=== PATIENT | female | born 2000 | race Hispanic/Latino ===

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

== ENCOUNTER 2019-12-01 18:30 | Inpatient (IN) | payer OTHER, MEDICAID, SELFPAY ==
[2019-12-01] VITALS (17 sets, daily range): BP systolic 113–158; BP diastolic 53–87; PULSE 109–143; RESP 9–40; TEMP 37.3–37.9; O2SAT 94–99; BMI 52.7
--- NOTE | 2019-12-01 18:32 | ED_ITS ---
HPI - Fever General Chief Complaint: Fever Stated Complaint: fever, medicine not reducing she says Time Seen by Provider: 12/01/19 18:32 Source: patient Mode of arrival: Ambulatory Limitations: no limitations History of Present Illness HPI Narrative: 19F nonsmoker with no significant medical history presents with 24 hours of worsening epigastric pain, N/V, and fever as high as 103. Her pain is worse with eating and moving and seems to improve with rest. She has had some loose stools, but no blood. She denies runny nose, sore throat, cough, chest pain or shortness of breath. She denies any dysuria, frequency or urgency. She denies any vaginal bleeding or discharge. She states there is no chance she is . She denies any known exposure to persons known to have COVID-19. She denies bad food, recent travel, or recent antibiotics. She's never had this Related Data Home Medications Medication Instructions Recorded Confirmed No Known Home Medications 12/02/19 12/02/19 Allergies Allergy/AdvReac Type Severity Reaction Status Date / Time No Known Drug Allergies Allergy Verified 12/01/19 18:44 Review of Systems Constitutional Constitutional: Reports body ache(s), Reports chills, Denies fatigue, Reports fever(s), Denies frequent falls, Denies lethargy and Denies weakness Eyes Eyes: Denies change in vision, Denies eye discharge, Denies irritation and Denies loss of vision ENT Ears, Nose, Mouth, and Throat: Denies change in voice, Denies dizziness, Denies neck pain, Denies sore throat and Denies throat swelling Cardiovascular Cardiovascular: Denies chest pain, Denies irregular heart rhythm, Denies light headedness, Denies palpitations, Denies dyspnea, Denies dyspnea on exertion and Denies orthopnea Respiratory Respiratory: Denies cough, Denies dyspnea, Denies dyspnea on exertion and Denies wheezing Gastrointestinal Gastrointestinal: Reports abdominal pain, Denies change in bowel habits, Reports diarrhea, Reports nausea and Reports vomiting Musculoskeletal Musculoskeletal: Denies neck pain and Denies numbness Integumentary/Breasts Skin/Breast: Denies pruritus, Denies erythema, Denies rash and Denies wounds Neurologic Neurologic: Denies behavioral changes, Denies confusion, Denies dizziness, Denies frequent falls, Denies loss of vision, Denies numbness and Denies weakness Psychiatric Psychiatric: Denies anxiety, Denies behavioral changes, Denies confusion, Denies depression, Denies homicidal ideation and Denies suicidal ideation Endocrine Endocrine: Denies fatigue, Denies flushing and Denies palpitations Hematologic/Lymphatic Hematologic/Lymphatic: Denies easy bruising Allergic/Immunologic Allergic/Immunologic: Denies urticaria, Denies throat swelling and Denies wheezing Patient History Social History household members: family Smoking Status: Never smoker Smoking Status: Never smoker alcohol intake frequency: 0-2 drinks per day Substance Use Type: does not use Exam Narrative Exam Narrative: GENERAL: [19] year old patient appears stated age. Well- nourished, well-developed patient, in mild distress. HEAD: Atraumatic. Normocephalic. EYES: Pupils equal round and reactive. Extraocular motions intact. No scleral icterus. No injection or drainage. ENT: Nose without bleeding, purulent drainage. Throat without erythema, tonsillar hypertrophy or exudate. Airway patent. NECK: Trachea midline. Non tender CARDIOVASCULAR: tachycardic and irregular rhythm without murmurs, gallops, or rubs. RESPIRATORY: Clear to auscultation. Breath sounds equal bilaterally. No wheezes, rales, or rhonchi. GASTROINTESTINAL: Abdomen soft, epigastric and RUQ pain, nondistended. EXTREMITIES: No edema or joint tenderness. BACK: Nontender without deformity or crepitance. No flank tenderness. NEURO: AOx3. SKIN: No rash or erythema of visible areas Initial Vital Signs Initial Vital Signs: Vital Signs Pulse Rate 137 H 12/01/19 18:40 Pulse Oximetry 95 12/01/19 18:40 Course Orders Ordered: ED Orders 12/01/19 18:40 US abdomen limited Stat COVID19 -ED/INPAT/OR/L&D Stat 12/01/19 19:50 Complete Blood Count AUTO DIFF Stat Comprehensive Metabolic Panel Stat Lactate (Lactic Acid) Stat Lipase Stat Procalcitonin Stat 12/01/19 20:33 Blood Culture Stat 12/01/19 21:41 CT abdomen pelvis w con Stat 12/01/19 21:55 Urine Culture Stat Urine Microscopic Stat Acetaminophen (Tylenol) 650 mg PO Q6HR PRN PRN Reason: Fever/Mild Pain (1-3) Enoxaparin Sodium (Lovenox) 40 mg SUBCUT DAILY NICKIE Sodium Chloride (Normal Saline 0.9%) 1,000 mls @ 150 mls/hr IV CONT NICKIE Potassium Chloride 30 meq/ (Sodium Chloride) 265 mls @ 88.333 mls/hr IV Q3H NICKIE Stop: 12/02/19 07:49 Metronidazole (Flagyl) 500 mg in 100 mls @ 100 mls/hr IV Q6H NICKIE Ceftriaxone Sodium/Dextrose (Rocephin) 1 gm in 50 mls @ 100 mls/hr IV Q24H NICKIE Naloxone HCl (Narcan) 0.2 mg IV Q2MIN PRN PRN Reason: Opiate Reversal Ondansetron HCl (Zofran) 4 mg IV Q6HR PRN PRN Reason: Nausea And Vomiting Discontinued Medications Lactated Ringer's (Lactated Ringers) 1,365 mls @ 455 mls/hr 30 ml/kg infuse over 3 hr (1365 ml) IV NOW ONE Stop: 12/01/19 21:39 Last Infusion: 12/01/19 21:22 Dose: 0 mls/hr Documented by: Admin: 12/01/19 19:27 Dose: 455 mls/hr Documented by: JOSE Ceftriaxone Sodium/Dextrose (Rocephin) 2 gm in 50 mls @ 100 mls/hr IV NOW ONE Stop: 12/01/19 21:34 Last Infusion: 12/01/19 21:47 Dose: 0 mls/hr Documented by: Admin: 12/01/19 21:13 Dose: 100 mls/hr Documented by: YURY Metronidazole (Flagyl) 500 mg in 100 mls @ 100 mls/hr IV NOW ONE Stop: 12/02/19 00:12 Last Infusion: 12/02/19 01:10 Dose: 0 mls/hr Documented by: Admin: 12/01/19 23:39 Dose: 100 mls/hr Documented by: YURY Ketorolac Tromethamine (Toradol) 15 mg IV NOW ONE Stop: 12/01/19 20:57 Last Admin: 12/01/19 21:01 Dose: 15 mg Documented by: YURY Reevaluation(s) Reevaluation #1: call to general surgery after completion of US. Given lack of obvious findings to suggest choley recommendation (per Symone) is to obtain CT Symone has seen patient at bedside and reviewed case and does not feel GB is problem. Recommends fluids, ABX, admission to medicine. Vital Signs Vital signs: Vital Signs - 8 hr 12/01/19 18:40 12/01/19 18:44 12/01/19 19:00 Temperature 99.1 F Pulse Rate 137 H 136 H 124 H Respiratory Rate 22 Blood Pressure 137/71 Pulse Oximetry 95 95 94 12/01/19 19:30 12/01/19 20:00 12/01/19 20:30 Temperature 100.2 F H Pulse Rate 109 H 111 H 113 H Respiratory Rate 20 32 H 40 H Blood Pressure Pulse Oximetry 94 99 96 12/01/19 21:00 12/01/19 21:01 12/01/19 21:05 Temperature 100.2 F H Pulse Rate 135 H 139 H Respiratory Rate 28 H 32 H Blood Pressure 136/85 Pulse Oximetry 95 99 12/01/19 21:30 12/01/19 22:11 12/01/19 22:30 Temperature Pulse Rate 143 H 139 H 136 H Respiratory Rate 9 L Blood Pressure 137/87 Pulse Oximetry 99 99 99 12/01/19 22:38 12/01/19 23:00 12/01/19 23:01 Temperature Pulse Rate 134 H 137 H 137 H Respiratory Rate 25 H 13 16 Blood Pressure 158/70 H 126/59 L Pulse Oximetry 98 98 97 12/01/19 23:30 12/01/19 23:31 Temperature Pulse Rate 133 H 134 H Respiratory Rate 30 H 25 H Blood Pressure 113/53 L Pulse Oximetry 99 99 MDM - Fever Lab Data Result diagrams: 12/01/19 19:50 12/01/19 19:50 Labs: Lab Results 12/01/19 12/01/19 12/01/19 Range/Units 18:40 19:50 19:50 WBC 15.6 H (4.5-11.0) X10^3/uL RBC 4.63 (4.0-5.2) X10^6/uL Hgb 13.9 (12.0-16.0) g/dL Hct 40.4 (36-46) % MCV 87.3 (80-100) fL MCH 29.9 (26-34) PG MCHC 34.3 (30-36) % RDW 12.8 (11.6-14.8) % Plt Count 214 (150-400) X10^3/uL Neut % (Auto) 91.1 H (50-75) % Lymph % (Auto) 4.9 L (25-40) % [place] % (Auto) 3.2 (3-14) % Eos % (Auto) 0.5 L (2-4) % Baso % (Auto) 0.3 (0-2) % Neut # (Auto) 31578 H (6999-3636) /uL Lymph # (Auto) 800 L (4403-3306) /uL [place] # (Auto) 500 (0-900) /uL Eos # (Auto) 100 (0-450) /uL Baso # (Auto) 0 (0-100) /uL Sodium (137-145) mmol/L Potassium (3.4-5.1) mmol/L Chloride (98-107) mmol/L Carbon Dioxide (22-32) mmol/L BUN (7-17) mg/dL Creatinine (0.52-1.04) mg/dL Estimated GFR (>60) mL/min BUN/Creatinine Ratio (6-22) Glucose (70-100) mg/dL Lactate (0.7-2.1) mmol/L Calcium (8.4-10.2) mg/dL Total Bilirubin (0.2-1.3) mg/dL AST (14-36) IU/L ALT (<35) IU/L Alkaline Phosphatase (38-126) U/L Total Protein (6.3-8.2) g/dL Albumin (3.5-5.0) g/dL Globulin (1.7-4.1) g/dL Albumin/Globulin Ratio (1.0-2.8) Lipase (23-300) U/L Procalcitonin 0.21 (<0.5) ng/mL Urine RBC (0-5/HPF) Urine WBC (0-5/HPF) Ur Squamous Epith Cells (0-5/HPF) Urine Bacteria (None) Hyaline Casts (None) WBC Casts (None) Urine Mucus (Negative) Ur Culture Indicated? COVID-19 PCR Negative (Negative) 12/01/19 12/01/19 12/01/19 Range/Units 19:50 19:50 19:50 WBC (4.5-11.0) X10^3/uL RBC (4.0-5.2) X10^6/uL Hgb (12.0-16.0) g/dL Hct (36-46) % MCV (80-100) fL MCH (26-34) PG MCHC (30-36) % RDW (11.6-14.8) % Plt Count (150-400) X10^3/uL Neut % (Auto) (50-75) % Lymph % (Auto) (25-40) % [place] % (Auto) (3-14) % Eos % (Auto) (2-4) % Baso % (Auto) (0-2) % Neut # (Auto) (8378-9066) /uL Lymph # (Auto) (8528-0489) /uL [place] # (Auto) (0-900) /uL Eos # (Auto) (0-450) /uL Baso # (Auto) (0-100) /uL Sodium 137 (137-145) mmol/L Potassium 3.2 L (3.4-5.1) mmol/L Chloride 106 (98-107) mmol/L Carbon Dioxide 23 (22-32) mmol/L BUN 8 (7-17) mg/dL Creatinine 1.01 (0.52-1.04) mg/dL Estimated GFR > 60.0 (>60) mL/min BUN/Creatinine Ratio 7.9 (6-22) Glucose 114 H (70-100) mg/dL Lactate 1.3 (0.7-2.1) mmol/L Calcium 8.7 (8.4-10.2) mg/dL Total Bilirubin 0.7 (0.2-1.3) mg/dL AST 23 (14-36) IU/L ALT 21 (<35) IU/L Alkaline Phosphatase 58 (38-126) U/L Total Protein 7.6 (6.3-8.2) g/dL Albumin 4.2 (3.5-5.0) g/dL Globulin 3.4 (1.7-4.1) g/dL Albumin/Globulin Ratio 1.2 (1.0-2.8) Lipase 44 (23-300) U/L Procalcitonin (<0.5) ng/mL Urine RBC (0-5/HPF) Urine WBC (0-5/HPF) Ur Squamous Epith Cells (0-5/HPF) Urine Bacteria (None) Hyaline Casts (None) WBC Casts (None) Urine Mucus (Negative) Ur Culture Indicated? COVID-19 PCR (Negative) 12/01/19 Range/Units 21:55 WBC (4.5-11.0) X10^3/uL RBC (4.0-5.2) X10^6/uL Hgb (12.0-16.0) g/dL Hct (36-46) % MCV (80-100) fL MCH (26-34) PG MCHC (30-36) % RDW (11.6-14.8) % Plt Count (150-400) X10^3/uL Neut % (Auto) (50-75) % Lymph % (Auto) (25-40) % [place] % (Auto) (3-14) % Eos % (Auto) (2-4) % Baso % (Auto) (0-2) % Neut # (Auto) (4264-6463) /uL Lymph # (Auto) (3286-4064) /uL [place] # (Auto) (0-900) /uL Eos # (Auto) (0-450) /uL Baso # (Auto) (0-100) /uL Sodium (137-145) mmol/L Potassium (3.4-5.1) mmol/L Chloride (98-107) mmol/L Carbon Dioxide (22-32) mmol/L BUN (7-17) mg/dL Creatinine (0.52-1.04) mg/dL Estimated GFR (>60) mL/min BUN/Creatinine Ratio (6-22) Glucose (70-100) mg/dL Lactate (0.7-2.1) mmol/L Calcium (8.4-10.2) mg/dL Total Bilirubin (0.2-1.3) mg/dL AST (14-36) IU/L ALT (<35) IU/L Alkaline Phosphatase (38-126) U/L Total Protein (6.3-8.2) g/dL Albumin (3.5-5.0) g/dL Globulin (1.7-4.1) g/dL Albumin/Globulin Ratio (1.0-2.8) Lipase (23-300) U/L Procalcitonin (<0.5) ng/mL Urine RBC None seen (0-5/HPF) Urine WBC 10-30/hpf H (0-5/HPF) Ur Squamous Epith Cells 1-5 /hpf (0-5/HPF) Urine Bacteria Moderate (10-30) H (None) Hyaline Casts 0-1/lpf (None) WBC Casts 0-1/lpf (None) Urine Mucus 1+ H (Negative) Ur Culture Indicated? Specimen cultured COVID-19 PCR (Negative) Point of Care Testing Test Results Negative Urine Dip Bedside Urine Glucose Negative Bedside Urine Bilirubin - Negative Bedside Urine Ketone +/- 5 Urine Specific [place] 1.015 Bedside Urine Occult Blood +/- Bedside Urine pH 6.0 Bedside Urine Protein + 30 Bedside Urine Urobilinogen - Negative Bedside Urine Nitrite - Negative Bedside Urine Leukocytes - Negative Esterase Imaging Data CT scan - abdomen/pelvis: Radiologist's Impression: Genna Vanegas L 19 F 2000 [place] [address] CT Scan Report Signed Patient: Genna Vanegas LMR#: [id number] : 2000Acct:[id number] Age/Sex: FDate of Service: 12/01/19 Loc: ED Accession Number: [id number] Procedure: CT abdomen pelvis w con Ordering Provider: Tr Marquez D.O. PROCEDURE: CT ABDOMEN PELVIS W CON INDICATIONS: severe epigastric pain, fever, vomiting, leukocytosis TECHNIQUE: After the administration of intravenous contrast, 5 mm thick sections acquired from the diaphragm to the symphysis. 5 mm coronal and sagittal reformats were acquired. For radiation dose reduction, the following was used: automated exposure control, adjustment of mA and/or kV according to patient size. COMPARISON: [facility], , ABDOMEN LIMITED, 12/01/2019, 19:20. FINDINGS: Image quality: Excellent. ABDOMEN: Lung bases: Lung bases are clear. Heart size is normal. Solid organs: Liver is normal in size and enhancement. Diffuse fatty liver infiltration is noted. Gallbladder demonstrates no significant CT abnormality. Biliary system is non dilated. Pancreas enhances normally. Spleen is normal in size and enhancement. No adrenal nodules. Kidneys demonstrate normal size and enhancement, without hydronephrosis. Peritoneum and bowel: Abnormal wall thickening can be seen throughout the colon, particularly involving the ascending colon. The terminal ileum is also thickened. No frankly dilated loops of small bowel are seen. No free air or significant free fluid can be seen. A normal appendix is seen. Nodes and vessels: No retroperitoneal or mesenteric adenopathy by size criteria. Aorta and inferior vena cava are normal in size. Miscellaneous: No ventral hernias. PELVIS: Genitourinary: Bladder wall thickness is normal. The uterus appears normal for age. No adnexal masses are seen. Miscellaneous: No inguinal hernias or adenopathy. Bones: No suspicious bony lesions. No vertebral body compression fractures. IMPRESSION: Diffuse colitis, which is most prominent involving the ascending colon, it also involving the terminal ileum. Please consider potential infectious and inflammatory causes of colitis, including Crohn's disease. Normal appendix. No gallbladder abnormality is seen by CT. Incidental note is made of: Fatty liver infiltration Note: This case (including differences between this final report and the preliminary report) discussed by telephone with Dr. Marquez at 9:56 p.m. [place] time on December 01, 2019. Dictated by: Trevon Barber M.D. on 12/01/2019 at 21:53 Approved by: Trevon Barber M.D. on 12/01/2019 at 21:58 US - abdomen: Radiologist's Impression: [place] [address] Ultrasound Report Signed Patient: Genna Vanegas LMR#: [id number] : 2000Acct:[id number] Age/Sex: 19 / FDate of Service: 12/01/19 Loc: ED Accession Number: [id number] Procedure: US abdomen limited Ordering Provider: Tr Marquez D.O. PROCEDURE: US ABDOMEN LIMITED INDICATIONS: sevre epigastric pain w/radiation to back TECHNIQUE: Real-time focused scanning was performed of the abdomen, with image documentation. COMPARISON: None. FINDINGS: The liver is prominently fatty infiltrated, and patient body habitus is large. Quality of visualization therefore is quite limited. Note is made of a 2 cm mobile gallstone within the gallbladder lumen measuring up to 1.9 x 1.0 x 1.6 cm. There is tenderness during sonographic palpation exactly over the gallbladder. IMPRESSION: Tenderness over the gallbladder, gallstone in place, but the gallbladder wall is not abnormally thickened at 2.4 mm and no immediate adjacent free fluid is seen. Biliary colic appears present, definite acute cholecystitis is not found. Dictated by: Neo Deal M.D. on 12/01/2019 at 20:05 Approved by: Neo Deal M.D. on 12/01/2019 at 20:07 [facility] Narrative Medical decision making narrative: 19-year-old female presents 24 hours of abdominal pain, fever and will multiple episodes of diarrhea. Initial story and exam raise suspicion for a gallbladder problem, however labs and imaging were very reassuring. CT notes colitis. Patient requires admission for IV fluids, antibiotics, stabilization of her condition Discharge Plan Departure Patient Disposition: Admitted As Inpatient Clinical Impression: Colitis Discharge Date/Time: 12/02/19 01:08 Admit Date/Time: 12/01/19 23:40 Admit Provider: Serene Gunn
--- NOTE | 2019-12-01 18:40 | DI.US.S_ITS ---
PROCEDURE: US ABDOMEN LIMITED INDICATIONS: sevre epigastric pain w/radiation to back TECHNIQUE: Real-time focused scanning was performed of the abdomen, with image documentation. COMPARISON: None. FINDINGS: The liver is prominently fatty infiltrated, and patient body habitus is large. Quality of visualization therefore is quite limited. Note is made of a 2 cm mobile gallstone within the gallbladder lumen measuring up to 1.9 x 1.0 x 1.6 cm. There is tenderness during sonographic palpation exactly over the gallbladder. IMPRESSION: Tenderness over the gallbladder, gallstone in place, but the gallbladder wall is not abnormally thickened at 2.4 mm and no immediate adjacent free fluid is seen. Biliary colic appears present, definite acute cholecystitis is not found. Dictated by: Neo Deal M.D. on 12/01/2019 at 20:05 Approved by: Neo Deal M.D. on 12/01/2019 at 20:07
[2019-12-01 19:10] LABS: COVID19 -Nasal RAPID Negative (Negative)
[2019-12-01] MEDS: LACTATED RINGERS 455 ML IV (19:27)
[2019-12-01 20:14] LABS: Add Manual Diff / Slide Review NO; Basophils Absolute Auto 0 /uL (0-100); Basophils Percent Auto 0.3 % (0-2); Eosinophils Absolute Auto 100 /uL (0-450); Eosinophils Percent Auto 0.5 % (2-4); Hematocrit 40.4 % (36-46); Hemoglobin 13.9 g/dL (12.0-16.0); Lymphocytes Absolute Auto 800 /uL (1100-4500); Lymphocytes Percent Auto 4.9 % (25-40); Mean Corpuscular HGB Conc 34.3 % (30-36); Mean Corpuscular Hemoglobin 29.9 PG (26-34); Mean Corpuscular Volume 87.3 fL (80-100); Monocytes Absolute Auto 500 /uL (0-900); Monocytes Percent Auto 3.2 % (3-14); Neutrophils Absolute Auto 14200 /uL (1500-7000); Neutrophils Percent Auto 91.1 % (50-75); Platelet Count 214 X10^3/uL (150-400); Red Blood Cell Count 4.63 X10^6/uL (4.0-5.2); Red Cell Distribution Width 12.8 % (11.6-14.8); White Blood Cell Count 15.6 X10^3/uL (4.5-11.0)
[2019-12-01 20:21] LABS: Alanine Aminotransferase 21 IU/L (<35); Albumin 4.2 g/dL (3.5-5.0); Albumin Globulin Ratio 1.2 (1.0-2.8); Alkaline Phosphatase 58 U/L (38-126); Aspartate Aminotransferase 23 IU/L (14-36); BUN Creatinine Ratio 7.9 (6-22); Bilirubin Total 0.7 mg/dL (0.2-1.3); Blood Urea Nitrogen 8 mg/dL (7-17); Calcium 8.7 mg/dL (8.4-10.2); Carbon Dioxide 23 mmol/L (22-32); Chloride 106 mmol/L (98-107); Estimated Glomerular Filt Rate > 60.0 mL/min (>60); Globulin 3.4 g/dL (1.7-4.1); Glucose 114 mg/dL (70-100); HEMOLYSIS 34 (0-50); Lipase 44 U/L (23-300); Potassium 3.2 mmol/L (3.4-5.1); Sodium 137 mmol/L (137-145); Total Protein 7.6 g/dL (6.3-8.2)
[2019-12-01 20:22] LABS: Lactate (Lactic Acid) 1.3 mmol/L (0.7-2.1)
[2019-12-01 20:47] LABS: Procalcitonin 0.21 ng/mL (<0.5)
[2019-12-01] MEDS: KETOROLAC 60 MG/2 ML VIAL 15 MG IV (21:01)
[2019-12-01] MEDS: CEFTRIAXONE 2 GM/50 ML FROZ.PIGGY IV (21:13)
--- NOTE | 2019-12-01 21:41 | DI.CT.S_ITS ---
PROCEDURE: CT ABDOMEN PELVIS W CON INDICATIONS: severe epigastric pain, fever, vomiting, leukocytosis TECHNIQUE: After the administration of intravenous contrast, 5 mm thick sections acquired from the diaphragm to the symphysis. 5 mm coronal and sagittal reformats were acquired. For radiation dose reduction, the following was used: automated exposure control, adjustment of mA and/or kV according to patient size. COMPARISON: [facility], , ABDOMEN LIMITED, 12/01/2019, 19:20. FINDINGS: Image quality: Excellent. ABDOMEN: Lung bases: Lung bases are clear. Heart size is normal. Solid organs: Liver is normal in size and enhancement. Diffuse fatty liver infiltration is noted. Gallbladder demonstrates no significant CT abnormality. Biliary system is non dilated. Pancreas enhances normally. Spleen is normal in size and enhancement. No adrenal nodules. Kidneys demonstrate normal size and enhancement, without hydronephrosis. Peritoneum and bowel: Abnormal wall thickening can be seen throughout the colon, particularly involving the ascending colon. The terminal ileum is also thickened. No frankly dilated loops of small bowel are seen. No free air or significant free fluid can be seen. A normal appendix is seen. Nodes and vessels: No retroperitoneal or mesenteric adenopathy by size criteria. Aorta and inferior vena cava are normal in size. Miscellaneous: No ventral hernias. PELVIS: Genitourinary: Bladder wall thickness is normal. The uterus appears normal for age. No adnexal masses are seen. Miscellaneous: No inguinal hernias or adenopathy. Bones: No suspicious bony lesions. No vertebral body compression fractures. IMPRESSION: Diffuse colitis, which is most prominent involving the ascending colon, it also involving the terminal ileum. Please consider potential infectious and inflammatory causes of colitis, including Crohn's disease. Normal appendix. No gallbladder abnormality is seen by CT. Incidental note is made of: Fatty liver infiltration Note: This case (including differences between this final report and the preliminary report) discussed by telephone with Dr. Marquez at 9:56 p.m. [place] time on December 01, 2019. Dictated by: Trevon Barber M.D. on 12/01/2019 at 21:53 Approved by: Trevon Barber M.D. on 12/01/2019 at 21:58
[2019-12-01 22:10] LABS: RBC Urine None Seen (0-5/HPF)
[2019-12-01 22:27] LABS: WBC Urine 10-30/HPF (0-5/HPF)
[2019-12-01 22:28] LABS: Bacteria Urine Moderate (10-30); Hyaline Casts Urine 0-1/LPF; Squamous Epithelial Cell Urine 1-5 /HPF (0-5/HPF)
[2019-12-01 22:29] LABS: Culture Indicated Urine Specimen Cultured; Mucus Urine 1+ (Negative); White Blood Cell Casts Urine 0-1/LPF
--- NOTE | 2019-12-01 23:24 | PM.CN ---
History of Present Illness Consult details Date Patient Seen: 12/01/19 Time Patient Seen: 23:24 Chief complaint: fever, medicine not reducing she says Requesting provider: Tr Marquez Narrative: The patient is a woman who has developed over the last 24-48 hours headache shaking chills fever to 103 and frequent persistent diarrhea. She has also had nausea and vomiting. All of this began after she ate at that [employer]. She however does not think she ate anything painted there. She has well water at her home that is brown and they do not use it to drink. The use bottled water. She has never had these symptoms before. She has not seen a doctor in 3 years and thus has not been on antibiotics recently. She is unaware of having eaten anything that may have been tainted. The pain in her abdomen is principally in the epigastrium and the lower abdomen. She has been vomiting green fluid and food persistently, in addition to the diarrhea. Meds Home Medications and Allergies Allergies Allergy/AdvReac Type Severity Reaction Status Date / Time No Known Drug Allergies Allergy Verified 12/01/19 18:44 Review of Systems Review of Systems Narrative: Patient wears glasses. Denies double vision pain arise earaches though she does have some pain along her right angle of her jaw. No tooth aches. No trouble swallowing. No cough cold or asthma. No heart problems murmurs. No blood in her stool. No prior abdominal surgery. No seizures or blackouts. No unusual bruising or bleeding. No anxiety or depression. Exam Vital Signs (past 8 hours): - 12/01/19 18:40 12/01/19 18:44 12/01/19 19:00 Temperature 99.1 F Pulse Rate 137 H 136 H 124 H Respiratory Rate 22 Blood Pressure 137/71 Pulse Oximetry 95 95 94 12/01/19 19:30 12/01/19 20:00 12/01/19 20:30 Temperature 100.2 F H Pulse Rate 109 H 111 H 113 H Respiratory Rate 20 32 H 40 H Blood Pressure Pulse Oximetry 94 99 96 12/01/19 21:00 12/01/19 21:01 12/01/19 21:05 Temperature 100.2 F H Pulse Rate 135 H 139 H Respiratory Rate 28 H 32 H Blood Pressure 136/85 Pulse Oximetry 95 99 12/01/19 21:30 12/01/19 22:11 12/01/19 22:30 Temperature Pulse Rate 143 H 139 H 136 H Respiratory Rate 9 L Blood Pressure 137/87 Pulse Oximetry 99 99 99 12/01/19 22:38 Temperature Pulse Rate 134 H Respiratory Rate 25 H Blood Pressure 158/70 H Pulse Oximetry 98 Oxygen Delivery Method Room Air Narrative Exam Narrative: Cooperative young woman in no distress. BMI is 52. Her eyes are nonicteric. Conjunctiva are pink. Is no swelling of the lids. Her lungs are clear to auscultation. No rales or rhonchi. Heart regular rate and rhythm without murmur gallop. Quite tachycardic however. Abdomen is protuberant soft. There is mild tenderness in the epigastrium and in the lower abdomen. No obvious ventral hernias. No scars. Difficult to feel of her liver or spleen or enlarged. She is alert and oriented x3. Speech rate and content are appropriate. Affect is appropriate. Objective Imaging CT scan - abdomen: My impression: Thickened colon consistent with colitis. Gallbladder looks normal. No thickening of the wall. No ductal dilatation. No free air. Liver is not enlarged. She may have a small umbilical hernia. US - abdomen: My impression: Mild thickening of the gallbladder wall at 2 mm. Stones within the gallbladder. Labs Result Diagrams: 12/01/19 19:50 12/01/19 19:50 Labs: Laboratory Results - last 24 hr 12/01/19 12/01/19 12/01/19 18:40 19:50 19:50 WBC 15.6 H RBC 4.63 Hgb 13.9 Hct 40.4 MCV 87.3 MCH 29.9 MCHC 34.3 RDW 12.8 Plt Count 214 Neut % (Auto) 91.1 H Lymph % (Auto) 4.9 L [place] % (Auto) 3.2 Eos % (Auto) 0.5 L Baso % (Auto) 0.3 Neut # (Auto) 33298 H Lymph # (Auto) 800 L [place] # (Auto) 500 Eos # (Auto) 100 Baso # (Auto) 0 Sodium Potassium Chloride Carbon Dioxide BUN Creatinine Estimated GFR BUN/Creatinine Ratio Glucose Lactate Calcium Total Bilirubin AST ALT Alkaline Phosphatase Total Protein Albumin Globulin Albumin/Globulin Ratio Lipase Procalcitonin 0.21 Urine RBC Urine WBC Ur Squamous Epith Cells Urine Bacteria Hyaline Casts WBC Casts Urine Mucus Ur Culture Indicated? COVID-19 PCR Negative 12/01/19 12/01/19 12/01/19 19:50 19:50 19:50 WBC RBC Hgb Hct MCV MCH MCHC RDW Plt Count Neut % (Auto) Lymph % (Auto) [place] % (Auto) Eos % (Auto) Baso % (Auto) Neut # (Auto) Lymph # (Auto) [place] # (Auto) Eos # (Auto) Baso # (Auto) Sodium 137 Potassium 3.2 L Chloride 106 Carbon Dioxide 23 BUN 8 Creatinine 1.01 Estimated GFR > 60.0 BUN/Creatinine Ratio 7.9 Glucose 114 H Lactate 1.3 Calcium 8.7 Total Bilirubin 0.7 AST 23 ALT 21 Alkaline Phosphatase 58 Total Protein 7.6 Albumin 4.2 Globulin 3.4 Albumin/Globulin Ratio 1.2 Lipase 44 Procalcitonin Urine RBC Urine WBC Ur Squamous Epith Cells Urine Bacteria Hyaline Casts WBC Casts Urine Mucus Ur Culture Indicated? COVID-19 PCR 12/01/19 21:55 WBC RBC Hgb Hct MCV MCH MCHC RDW Plt Count Neut % (Auto) Lymph % (Auto) [place] % (Auto) Eos % (Auto) Baso % (Auto) Neut # (Auto) Lymph # (Auto) [place] # (Auto) Eos # (Auto) Baso # (Auto) Sodium Potassium Chloride Carbon Dioxide BUN Creatinine Estimated GFR BUN/Creatinine Ratio Glucose Lactate Calcium Total Bilirubin AST ALT Alkaline Phosphatase Total Protein Albumin Globulin Albumin/Globulin Ratio Lipase Procalcitonin Urine RBC None seen Urine WBC 10-30/hpf H Ur Squamous Epith Cells 1-5 /hpf Urine Bacteria Moderate (10-30) H Hyaline Casts 0-1/lpf WBC Casts 0-1/lpf Urine Mucus 1+ H Ur Culture Indicated? Specimen cultured COVID-19 PCR Assessment & Plan Assessment & Plan narrative: History and physical exam or typical of either a viral or bacterial GI tract infection. She has diffuse muscle pain headache chills and unusually high fever nausea vomiting diarrhea as her principal symptoms. CT is consistent with colitis. The symptoms are not typical of gallbladder disease. Her liver function tests are normal though her white count is elevated, also suggesting an infection a probably not 1 related to her biliary structures. I would recommend treating her colitis with broad-spectrum antibiotics including something to cover C diff. I would obtain cultures of her stool along with studies for C diff and for O&P. I suspect this is an acute infection however. Supportive care with generous IV fluids also would likely be beneficial.
[2019-12-01] MEDS: metroNIDAZOLE 500 MG/100 ML PIGGYBACK 100 MG IV (23:39)
[2019-12-02] VITALS (16 sets, daily range): BP systolic 101–129; BP diastolic 53–86; PULSE 96–148; RESP 14–32; TEMP 36.6–39.2; O2SAT 96–100; BMI 52.7
--- NOTE | 2019-12-02 01:25 | PC.ADMIT ---
Addendum entered by Edilia Dockery R.N. 12/02/19 02:28: Luis A PADILLA notified of patient HR running in the 140s Original Note: [address] Admission Note: Pt arrived to unit without issues. Alert and oriented. Complaining of headache pain 8/10 unresolved with pain meds downstairs. Pt SBA to restroom. Voiding without issues. No complaints at this time. The patient,Genna Vanegas,19 y/o, was given written information regarding hospital policies, unit procedures and contact persons. Patient's smoking status: Never smoker. Vital Signs - 8 hr 12/01/19 18:40 12/01/19 18:44 12/01/19 19:00 Temperature 99.1 F Pulse Rate 137 H 136 H 124 H Respiratory Rate 22 Blood Pressure 137/71 Pulse Oximetry 95 95 94 12/01/19 19:30 12/01/19 20:00 12/01/19 20:30 Temperature 100.2 F H Pulse Rate 109 H 111 H 113 H Respiratory Rate 20 32 H 40 H Blood Pressure Pulse Oximetry 94 99 96 12/01/19 21:00 12/01/19 21:01 12/01/19 21:05 Temperature 100.2 F H Pulse Rate 135 H 139 H Respiratory Rate 28 H 32 H Blood Pressure 136/85 Pulse Oximetry 95 99 12/01/19 21:30 12/01/19 22:11 12/01/19 22:30 Temperature Pulse Rate 143 H 139 H 136 H Respiratory Rate 9 L Blood Pressure 137/87 Pulse Oximetry 99 99 99 12/01/19 22:38 12/01/19 23:00 12/01/19 23:01 Temperature Pulse Rate 134 H 137 H 137 H Respiratory Rate 25 H 13 16 Blood Pressure 158/70 H 126/59 L Pulse Oximetry 98 98 97 12/01/19 23:30 12/01/19 23:31 12/02/19 00:00 Temperature Pulse Rate 133 H 134 H 139 H Respiratory Rate 30 H 25 H 32 H Blood Pressure 113/53 L 127/65 Pulse Oximetry 99 99 99 12/02/19 00:30 12/02/19 00:31 12/02/19 01:13 Temperature 102.5 F H Pulse Rate 140 H 138 H 148 H Respiratory Rate 26 H 23 18 Blood Pressure 111/86 101/53 L Pulse Oximetry 99 100 99
[2019-12-02] MEDS: ACETAMINOPHEN 325 MG TABLET 650 MG PO ×2 (02:20→16:52)
[2019-12-02] MEDS: POTASSIUM CHLORIDE 30 MEQ in SODIUM CHLORIDE 0.9% 250 ML 88.333 ML IV ×2 (02:21→06:30)
[2019-12-02] MEDS: SODIUM CHLORIDE 0.9% 1,000 ML 150 ML IV ×2 (02:27→13:01)
[2019-12-02] MEDS: MELATONIN 3 MG TABLET 6 MG PO (02:33)
--- NOTE | 2019-12-02 03:17 | PC.NURSE ---
Notified Luis A PADILLA that patient continues to run a fever at 102.6 after tylenol given. Orders received
[2019-12-02 03:34] LABS: Hemoglobin A1C% w Est Avg Glu 5.6 % (4.0-6.0)
[2019-12-02] MEDS: IBUPROFEN 400 MG TABLET PO (03:45)
--- NOTE | 2019-12-02 03:46 | PM.HP.1 ---
History of Present Illness History of Present Illness Date Patient Seen: 12/02/19 Time Patient Seen: 01:45 Chief complaint: fever, medicine not reducing she says Narrative: Genna Vanegas is 19F nonsmoker with no significant medical history presents with 24 hours of worsening epigastric pain, N/V, and fever as high as 103 taken both at home and upon presenting to the ED. Her pain is worse with eating and moving and seems to improve with rest. She has had some loose stools, but no blood. She denies runny nose, sore throat, cough, chest pain or shortness of breath. She denies any dysuria, frequency or urgency. She denies any vaginal bleeding or discharge. She states there is no chance she is . She denies any known exposure to persons known to have COVID-19. She did speak to Dr. Ashby and told him her symptoms started after eating at the [employer]. Abdominal ultrasound was negative, CT of the abdomen and pelvis indicated thickening of the ascending colon and terminal ilieum concerning for colitis. Her temperature was 102.6? last taken, blood pressure 101/53, heart rate 130, respiratory rate of 18, oxygen saturation of 99% on room air, she weighs 124.9 kg with a BMI of 52.7. WBC is elevated at 15.6, with a significant left shift to 14,200 neutrophils, hemoglobin and hematocrit are 13.9 and 40.4 respectively, platelet count is 214, potassium is 3.2, glucose 114 with a hemoglobin A1c of 5.6, liver enzymes are within normal limits, lipase is negative at 44 common procalcitonin is 0.21, urine is suspicious for UTI with urine wbc's, urine bacteria positive and the specimen will be cultured. COVID-19 is negative. Patient History Medical History (Updated 12/02/19 @ 03:57 by VALERIE Maya) No significant past medical history (Acute) Surgical History (Updated 12/02/19 @ 03:57 by VALERIE Maya) Hx of tonsillectomy (Acute) Family & Social History Family History (Updated 12/02/19 @ 03:58 by VALERIE Maya) Mother Diabetes mellitus Father Diabetes mellitus Sister Diabetes mellitus Hypothyroidism Social History: household members family Prior Living Arrangements House Safety & Behavioral: Feels Safe in Current Yes Environment Suicidal Ideation Description None Suicide Plan Description No Plan Tobacco & Substance use: Smoking Status Never smoker alcohol intake frequency 0-2 drinks per day Substance Use Type does not use Meds Home Medications and Allergies Home Medications Medication Instructions Recorded Confirmed Type No Known Home Medications 12/02/19 12/02/19 History Allergies Allergy/AdvReac Type Severity Reaction Status Date / Time No Known Drug Allergies Allergy Verified 12/01/19 18:44 Review of Systems Review of Systems ROS: Yes All systems reviewed with the patient and are negative except as otherwise documented Exam Vital Signs (past 8 hours): - 12/01/19 20:00 12/01/19 20:30 12/01/19 21:00 Temperature 100.2 F H Pulse Rate 111 H 113 H 135 H Respiratory Rate 32 H 40 H 28 H Blood Pressure Pulse Oximetry 99 96 95 12/01/19 21:01 12/01/19 21:05 12/01/19 21:30 Temperature 100.2 F H Pulse Rate 139 H 143 H Respiratory Rate 32 H 9 L Blood Pressure 136/85 137/87 Pulse Oximetry 99 99 12/01/19 22:11 12/01/19 22:30 12/01/19 22:38 Temperature Pulse Rate 139 H 136 H 134 H Respiratory Rate 25 H Blood Pressure 158/70 H Pulse Oximetry 99 99 98 12/01/19 23:00 12/01/19 23:01 12/01/19 23:30 Temperature Pulse Rate 137 H 137 H 133 H Respiratory Rate 13 16 30 H Blood Pressure 126/59 L Pulse Oximetry 98 97 99 12/01/19 23:31 12/02/19 00:00 12/02/19 00:30 Temperature Pulse Rate 134 H 139 H 140 H Respiratory Rate 25 H 32 H 26 H Blood Pressure 113/53 L 127/65 Pulse Oximetry 99 99 99 12/02/19 00:31 12/02/19 01:13 12/02/19 02:20 Temperature 102.5 F H 102.5 F H Pulse Rate 138 H 148 H Respiratory Rate 23 18 Blood Pressure 111/86 101/53 L Pulse Oximetry 100 99 12/02/19 03:17 12/02/19 03:18 Temperature 102.6 F H Pulse Rate 130 H Respiratory Rate Blood Pressure Pulse Oximetry Oxygen Delivery Method Room Air Narrative Exam Narrative: Gen: Alert, oriented, febrile, morbidly obese 19 y.o. female, appears uncomfortable HEENT: normocephalic, atraumatic, conjunctiva clear, sclera non-icteric, oral mucosa pink and moist Neck: supple, full ROM, no JVD, trachea is midline Resp: Lungs CTA, non-labored breathing CV: RRR, no murmur or rubs Abd: Diffusely tender worsened in the upper right and left quadrants, normoactive BTs Skin: no lesions or rashes, dry and intact Neuro: Alert and oriented X 4 w/no focal deficits. Speech clear and coherent. Extremities: moves all 4 extremities, is ambulatory, negative Bo?s sign Psyche: normal mood and affect. Objective Labs Result Diagrams: 12/01/19 19:50 12/01/19 19:50 Labs: Laboratory Results - last 24 hr 12/01/19 12/01/19 12/01/19 18:40 19:50 19:50 WBC 15.6 H RBC 4.63 Hgb 13.9 Hct 40.4 MCV 87.3 MCH 29.9 MCHC 34.3 RDW 12.8 Plt Count 214 Neut % (Auto) 91.1 H Lymph % (Auto) 4.9 L [place] % (Auto) 3.2 Eos % (Auto) 0.5 L Baso % (Auto) 0.3 Neut # (Auto) 84623 H Lymph # (Auto) 800 L [place] # (Auto) 500 Eos # (Auto) 100 Baso # (Auto) 0 Sodium Potassium Chloride Carbon Dioxide BUN Creatinine Estimated GFR BUN/Creatinine Ratio Glucose Hemoglobin A1c Lactate Calcium Total Bilirubin AST ALT Alkaline Phosphatase Total Protein Albumin Globulin Albumin/Globulin Ratio Lipase Procalcitonin 0.21 Urine RBC Urine WBC Ur Squamous Epith Cells Urine Bacteria Hyaline Casts WBC Casts Urine Mucus Ur Culture Indicated? COVID-19 PCR Negative 12/01/19 12/01/19 12/01/19 19:50 19:50 19:50 WBC RBC Hgb Hct MCV MCH MCHC RDW Plt Count Neut % (Auto) Lymph % (Auto) [place] % (Auto) Eos % (Auto) Baso % (Auto) Neut # (Auto) Lymph # (Auto) [place] # (Auto) Eos # (Auto) Baso # (Auto) Sodium 137 Potassium 3.2 L Chloride 106 Carbon Dioxide 23 BUN 8 Creatinine 1.01 Estimated GFR > 60.0 BUN/Creatinine Ratio 7.9 Glucose 114 H Hemoglobin A1c Lactate 1.3 Calcium 8.7 Total Bilirubin 0.7 AST 23 ALT 21 Alkaline Phosphatase 58 Total Protein 7.6 Albumin 4.2 Globulin 3.4 Albumin/Globulin Ratio 1.2 Lipase 44 Procalcitonin Urine RBC Urine WBC Ur Squamous Epith Cells Urine Bacteria Hyaline Casts WBC Casts Urine Mucus Ur Culture Indicated? COVID-19 PCR 12/01/19 12/01/19 19:50 21:55 WBC RBC Hgb Hct MCV MCH MCHC RDW Plt Count Neut % (Auto) Lymph % (Auto) [place] % (Auto) Eos % (Auto) Baso % (Auto) Neut # (Auto) Lymph # (Auto) [place] # (Auto) Eos # (Auto) Baso # (Auto) Sodium Potassium Chloride Carbon Dioxide BUN Creatinine Estimated GFR BUN/Creatinine Ratio Glucose Hemoglobin A1c 5.6 Lactate Calcium Total Bilirubin AST ALT Alkaline Phosphatase Total Protein Albumin Globulin Albumin/Globulin Ratio Lipase Procalcitonin Urine RBC None seen Urine WBC 10-30/hpf H Ur Squamous Epith Cells 1-5 /hpf Urine Bacteria Moderate (10-30) H Hyaline Casts 0-1/lpf WBC Casts 0-1/lpf Urine Mucus 1+ H Ur Culture Indicated? Specimen cultured COVID-19 PCR Assessment & Plan Assessment & Plan narrative: Genna Vanegas is a 19-year-old female who would be admitted for further evaluation and treatment of in a presumed infectious colitis. Infectious colitis, acute, present on admission -IV ceftriaxone was started for her in the ED -stool O&P and culture are pending as well as C difficile Fever, acute, present on admission -patient will receive alternating doses of Tylenol and ibuprofen for relief of her fever -this is likely the cause of her elevated heart rate at this time Suspected urinary tract infection, acute, present on admission -Urinalysis indicated elevated urine WBC, and bacteria, and has been sent for culture Morbid obesity, chronic, present on admission VTE prophylaxis: Caprini risk score: 1 Enoxaparin 40 mg subQ daily Consults: Dr. Ashby, general surgery consult and involvement is appreciated. Patient is admitted under inpatient status with expected length of stay greater than 2 midnights due to severity of presenting symptoms, risk of adverse event, and complexity of treatment plan. FEN: IV normal saline at 150 mL/hour, clear fluids, advance as tolerated, BMP and magnesium in the am. Dispo: Eventual discharge to home Code Status: Full code as discussed with patient COVID-19 COVID-19 status: Negative Result date/Date tested (Pos, Neg/Pending): 12/02/19
[2019-12-02 05:04] LABS: Add Manual Diff / Slide Review NO; Basophils Absolute Auto 100 /uL (0-100); Basophils Percent Auto 0.4 % (0-2); Eosinophils Absolute Auto 0 /uL (0-450); Hematocrit 39.2 % (36-46); Hemoglobin 13.2 g/dL (12.0-16.0); Lymphocytes Absolute Auto 1200 /uL (1100-4500); Lymphocytes Percent Auto 8.9 % (25-40); Mean Corpuscular HGB Conc 33.7 % (30-36); Mean Corpuscular Hemoglobin 29.5 PG (26-34); Mean Corpuscular Volume 87.3 fL (80-100); Monocytes Absolute Auto 400 /uL (0-900); Neutrophils Absolute Auto 11500 /uL (1500-7000); Neutrophils Percent Auto 87.7 % (50-75); Platelet Count 212 X10^3/uL (150-400); Red Blood Cell Count 4.49 X10^6/uL (4.0-5.2); Red Cell Distribution Width 12.8 % (11.6-14.8); White Blood Cell Count 13.1 X10^3/uL (4.5-11.0)
[2019-12-02 05:08] LABS: Chloride 107 mmol/L (98-107); HEMOLYSIS < 15 (0-50)
[2019-12-02 05:10] LABS: BUN Creatinine Ratio 7.9 (6-22); Blood Urea Nitrogen 7 mg/dL (7-17); Calcium 8.6 mg/dL (8.4-10.2); Carbon Dioxide 21 mmol/L (22-32); Estimated Glomerular Filt Rate > 60.0 mL/min (>60); Glucose 129 mg/dL (70-100); Potassium 3.4 mmol/L (3.4-5.1); Sodium 137 mmol/L (137-145)
[2019-12-02] MEDS: metroNIDAZOLE 500 MG/100 ML PIGGYBACK 100 MG IV (05:37)
[2019-12-02] MEDS: atenoloL 25 MG TABLET PO (05:42)
[2019-12-02 06:26] LABS: Clostridium Difficile Tox PCR Negative for C. diff
[2019-12-02 06:31] LABS: Procalcitonin 0.42 ng/mL (<0.5)
[2019-12-02] MEDS: ENOXAPARIN 40 MG/0.4 ML SYRINGE SUBCUT (09:00)
[2019-12-02 09:43] LABS: Campylobacter Not Detected (Not Detect); Clostridium difficile toxin AB Not Detected (Not Detect); Enteroaggregative E.coli Not Detected (Not Detect); Enteropathogenic E.coli Detected (Not Detect); Plesiomonsa shigelloides Not Detected (Not Detect); Vibrio Not Detected (Not Detect); Vibrio cholerae Not Detected (Not Detect); Yersinia enterocolitica Not Detected (Not Detect)
[2019-12-02 09:44] LABS: Adenovirus F 40/41 Not Detected (Not Detect); Astrovirus Not Detected (Not Detect); Cryptosporidium Not Detected (Not Detect); Cyclospora cayetanensis Not Detected (Not Detect); Entamoeba histolytica Not Detected (Not Detect); Enterotoxigenic E.coli It/st Not Detected (Not Detect); Giardia lamblia Not Detected (Not Detect); Norovirus GI/GII Not Detected (Not Detect); Rotavirus A Not Detected (Not Detect); Sapovirus Not Detected (Not Detect); Shiga-like toxin-prod E.coli Not Detected (Not Detect); Shigella/Enteroinvasive E.coli Not Detected (Not Detect)
[2019-12-02 09:47] LABS: Salmonella Detected (Not Detect)
--- NOTE | 2019-12-02 11:37 | PC.NURSE ---
Assess- Patient is A&Ox3, she states that she has had some discomfort in her abdomen but did not need pain medication at this time. She has had 4 loose stools in the hat, they are liquid and yellow colored. Per.Dr Kowalski patient needs to be on contact/enteric precautions as she has ecoli and salmonella in her stool. She gets up independently and is resting at this time. Her ivf are infusing.
--- NOTE | 2019-12-02 16:16 | CM.DANOTE ---
Discharge Planning/Care Management DCP: assessment: case received, EMR reviewed and discussed POC outside of room during Team Rounds as pt is under precautions related to Salmonella and E Coli in stool and was having active diarrhea. Dr. Kowalski states [facility] have been notified as per protocol. Pt is a 19 year old female who admitted to care of hospitalist team late last night. Consulting: [facility]: Dr. Ashby. Payer: P/Medicaid PCP: no one is listed on face sheet...will need to check on this. DCP team will be following as POC unfolds. CM Discharge Assessment Start: 12/02/19 16:15 Freq: Status: Active Protocol: Document 12/02/19 16:15 ITV (Rec: 12/02/19 16:16 ITV [id number]) Discharge Planning Assessment Advance Directives? No History Provided By Patient Prior Living Arrangements House Household Members family Independent with ADL's Yes Is patient alert and oriented? Yes
--- NOTE | 2019-12-02 19:26 | PM.PN.1 ---
Subjective Subjective Date Patient Seen: 12/02/19 Interval history: Brief progress note: Patient seen and examined. GI stool PCR ordered and patient found to have both salmonella and EPEC infection. Patient was updated and microbiology notifying health department. Patient is afebrile and her diarrhea and abdominal pain have improved mildly. Discontinued metronidazole and increased ceftriaxone from 1g to 2 g IV daily due morbid obesity which will treat salmonella. Exam Vital Signs (past 8 hours): - 12/02/19 13:30 12/02/19 16:00 12/02/19 16:52 Temperature 99.9 F H 100.5 F H 100.5 F H Pulse Rate 98 H 99 H Respiratory Rate 18 20 Blood Pressure 121/65 129/74 Pulse Oximetry 99 96 12/02/19 17:00 12/02/19 17:42 12/02/19 18:07 Temperature 98.4 F 98.4 F Pulse Rate Respiratory Rate Blood Pressure Pulse Oximetry 96 Oxygen Delivery Method Room Air Oxygen Flow Rate 0 Objective Labs Result Diagrams: 12/02/19 04:41 12/02/19 04:41 Labs: Laboratory Results - last 24 hr 12/01/19 12/01/19 12/02/19 19:50 21:55 04:41 WBC 13.1 H RBC 4.49 Hgb 13.2 Hct 39.2 MCV 87.3 MCH 29.5 MCHC 33.7 RDW 12.8 Plt Count 212 Neut % (Auto) 87.7 H Lymph % (Auto) 8.9 L [place] % (Auto) 3.0 Eos % (Auto) 0.0 L Baso % (Auto) 0.4 Neut # (Auto) 22230 H Lymph # (Auto) 1200 [place] # (Auto) 400 Eos # (Auto) 0 Baso # (Auto) 100 Sodium Potassium Chloride Carbon Dioxide BUN Creatinine Estimated GFR BUN/Creatinine Ratio Glucose Hemoglobin A1c 5.6 Calcium Procalcitonin Urine RBC None seen Urine WBC 10-30/hpf H Ur Squamous Epith Cells 1-5 /hpf Urine Bacteria Moderate (10-30) H Hyaline Casts 0-1/lpf WBC Casts 0-1/lpf Urine Mucus 1+ H Ur Culture Indicated? Specimen cultured Stl C. cayetanensis PCR Stool Rotavirus (PCR) Stool Adenovirus (PCR) Stool Astrovirus (PCR) Stool Cryptosporidium PCR Stl E.coli Shiga Tox PCR St Sh/Enteroin Ecoli PCR Stool E coli O157 PCR Stl Enterotoxigenic E PCR Stool EPEC (PCR) Stl E. histolytica PCR Stool Giardia Lamblia PCR Stool Sapovirus (PCR) Stl P. shigelloides PCR St Y.enterocolitica PCR Stool Vibrio (PCR) Stl Vibrio cholerae PCR Stl Enteroaggr Ecoli PCR Stl Norovirus GI/GII PCR Campylobacter (PCR) C. difficile Tox (PCR) Salmonella (PCR) 12/02/19 12/02/19 12/02/19 04:41 04:41 05:30 WBC RBC Hgb Hct MCV MCH MCHC RDW Plt Count Neut % (Auto) Lymph % (Auto) [place] % (Auto) Eos % (Auto) Baso % (Auto) Neut # (Auto) Lymph # (Auto) [place] # (Auto) Eos # (Auto) Baso # (Auto) Sodium 137 Potassium 3.4 Chloride 107 Carbon Dioxide 21 L BUN 7 Creatinine 0.89 Estimated GFR > 60.0 BUN/Creatinine Ratio 7.9 Glucose 129 H Hemoglobin A1c Calcium 8.6 Procalcitonin 0.42 Urine RBC Urine WBC Ur Squamous Epith Cells Urine Bacteria Hyaline Casts WBC Casts Urine Mucus Ur Culture Indicated? Stl C. cayetanensis PCR Stool Rotavirus (PCR) Stool Adenovirus (PCR) Stool Astrovirus (PCR) Stool Cryptosporidium PCR Stl E.coli Shiga Tox PCR St Sh/Enteroin Ecoli PCR Stool E coli O157 PCR Stl Enterotoxigenic E PCR Stool EPEC (PCR) Stl E. histolytica PCR Stool Giardia Lamblia PCR Stool Sapovirus (PCR) Stl P. shigelloides PCR St Y.enterocolitica PCR Stool Vibrio (PCR) Stl Vibrio cholerae PCR Stl Enteroaggr Ecoli PCR Stl Norovirus GI/GII PCR Campylobacter (PCR) C. difficile Tox (PCR) Negative for c. diff Salmonella (PCR) 12/02/19 05:30 WBC RBC Hgb Hct MCV MCH MCHC RDW Plt Count Neut % (Auto) Lymph % (Auto) [place] % (Auto) Eos % (Auto) Baso % (Auto) Neut # (Auto) Lymph # (Auto) [place] # (Auto) Eos # (Auto) Baso # (Auto) Sodium Potassium Chloride Carbon Dioxide BUN Creatinine Estimated GFR BUN/Creatinine Ratio Glucose Hemoglobin A1c Calcium Procalcitonin Urine RBC Urine WBC Ur Squamous Epith Cells Urine Bacteria Hyaline Casts WBC Casts Urine Mucus Ur Culture Indicated? Stl C. cayetanensis PCR Not detected Stool Rotavirus (PCR) Not detected Stool Adenovirus (PCR) Not detected Stool Astrovirus (PCR) Not detected Stool Cryptosporidium PCR Not detected Stl E.coli Shiga Tox PCR Not detected St Sh/Enteroin Ecoli PCR Not detected Stool E coli O157 PCR Not detected Stl Enterotoxigenic E PCR Not detected Stool EPEC (PCR) Detected H Stl E. histolytica PCR Not detected Stool Giardia Lamblia PCR Not detected Stool Sapovirus (PCR) Not detected Stl P. shigelloides PCR Not detected St Y.enterocolitica PCR Not detected Stool Vibrio (PCR) Not detected Stl Vibrio cholerae PCR Not detected Stl Enteroaggr Ecoli PCR Not detected Stl Norovirus GI/GII PCR Not detected Campylobacter (PCR) Not detected C. difficile Tox (PCR) Not detected Salmonella (PCR) Detected H
[2019-12-02] MEDS: CEFTRIAXONE 2 GM/50 ML FROZ.PIGGY IV (20:21)
[2019-12-02] MEDS: SODIUM CHLORIDE 0.9% 1,000 ML 100 ML IV (20:21)
[2019-12-02 21:23] LABS: Magnesium 1.7 mg/dL (1.6-2.3)
[2019-12-02] MEDS: POTASSIUM CHLORIDE 20 MEQ TAB 40 MEQ PO (21:54)
[2019-12-03 01:30] VITALS: BP 130/90; PULSE 97; RESP 18; TEMP 37.1; O2SAT 98
[2019-12-03] MEDS: IBUPROFEN 400 MG TABLET PO (01:31)
[2019-12-03] MEDS: MELATONIN 3 MG TABLET 6 MG PO (01:31)
[2019-12-03] MEDS: ACETAMINOPHEN 325 MG TABLET 650 MG PO (01:32)
[2019-12-03 05:21] LABS: Add Manual Diff / Slide Review NO; Alanine Aminotransferase 21 IU/L (<35); Albumin 3.2 g/dL (3.5-5.0); Albumin Globulin Ratio 1.1 (1.0-2.8); Alkaline Phosphatase 47 U/L (38-126); Aspartate Aminotransferase 24 IU/L (14-36); Basophils Absolute Auto 0 /uL (0-100); Basophils Percent Auto 0.4 % (0-2); Bilirubin Total 0.3 mg/dL (0.2-1.3); Blood Urea Nitrogen 6 mg/dL (7-17); Carbon Dioxide 21 mmol/L (22-32); Chloride 113 mmol/L (98-107); Eosinophils Absolute Auto 0 /uL (0-450); Eosinophils Percent Auto 0.2 % (2-4); Estimated Glomerular Filt Rate > 60.0 mL/min (>60); Glucose 91 mg/dL (70-100); HEMOLYSIS < 15 (0-50); Hematocrit 35.6 % (36-46); Lymphocytes Absolute Auto 1700 /uL (1100-4500); Lymphocytes Percent Auto 22.7 % (25-40); Magnesium 1.9 mg/dL (1.6-2.3); Mean Corpuscular HGB Conc 33.8 % (30-36); Mean Corpuscular Hemoglobin 29.8 PG (26-34); Mean Corpuscular Volume 88.1 fL (80-100); Monocytes Absolute Auto 500 /uL (0-900); Monocytes Percent Auto 6.3 % (3-14); Neutrophils Absolute Auto 5400 /uL (1500-7000); Neutrophils Percent Auto 70.4 % (50-75); Platelet Count 182 X10^3/uL (150-400); Potassium 3.7 mmol/L (3.4-5.1); Red Blood Cell Count 4.04 X10^6/uL (4.0-5.2); Red Cell Distribution Width 13.1 % (11.6-14.8); Sodium 139 mmol/L (137-145); Total Protein 6.2 g/dL (6.3-8.2); White Blood Cell Count 7.7 X10^3/uL (4.5-11.0)
[2019-12-03 05:54] LABS: Procalcitonin 0.27 ng/mL (<0.5)
[2019-12-03] MEDS: SODIUM CHLORIDE 0.9% 1,000 ML 100 ML IV (07:03)
[2019-12-03 07:45] VITALS: O2SAT 98
--- NOTE | 2019-12-03 07:48 | PC.NURSE ---
PATIENT STATES SHE FEELS MUCH BETTER THIS AM. AFEBRILE, NO LONGER TACHY. REPORTS EPIGASTRIC TENDERNESS AND RUMBLING BUT DENIES CRAMPING AT THIS TIME. REPORTS APPROX FOUR DIARRHEA STOOLS LAST NIGHT. APPEARS COMFORTABLE SITTING UP IN BED, WATCHING A MOVIE. DRINKING FLUIDS. UPGRADED TO FULL LIQUID DIET FOR THIS AM.
[2019-12-03] MEDS: ENOXAPARIN 40 MG/0.4 ML SYRINGE SUBCUT (08:20)
--- NOTE | 2019-12-03 11:22 | P.DS_ITS ---
History of Present Illness History of Present Illness Date Patient Seen: 12/02/19 Chief complaint: fever, medicine not reducing she says Narrative: Written by Serene PADILLA: Genna Vanegas is 19F nonsmoker with no significant medical history presents with 24 hours of worsening epigastric pain, N/V, and fever as high as 103 taken both at home and upon presenting to the ED. Her pain is worse with eating and moving and seems to improve with rest. She has had some loose stools, but no blood. She denies runny nose, sore throat, cough, chest pain or shortness of breath. She denies any dysuria, frequency or urgency. She denies any vaginal bleeding or discharge. She states there is no chance she is . She denies any known exposure to persons known to have COVID-19. She did speak to Dr. Ashby and told him her symptoms started after eating at the [employer]. Abdominal ultrasound was negative, CT of the abdomen and pelvis indicated thickening of the ascending colon and terminal ilieum concerning for colitis. Her temperature was 102.6? last taken, blood pressure 101/53, heart rate 130, respiratory rate of 18, oxygen saturation of 99% on room air, she weighs 124.9 kg with a BMI of 52.7. WBC is elevated at 15.6, with a significant left shift to 14,200 neutrophils, hemoglobin and hematocrit are 13.9 and 40.4 respectively, platelet count is 214, potassium is 3.2, glucose 114 with a hemoglobin A1c of 5.6, liver enzymes are within normal limits, lipase is negative at 44 common procalcitonin is 0.21, urine is suspicious for UTI with urine wbc's, urine bacteria positive and the specimen will be cultured. COVID-19 is negative. Discharge Providers Provider Date of admission: 12/01/19 23:40 Discharge Date: 12/03/19 Consults: 12/02/19 01:49 Consult to Physician Routine Comment: Consulting Provider: Denys Ashby Reason for consultation: colitis Has provider been notified: Yes Discharge provider: Sindy Kowalski DO Summary Hospital Course Discharge Diagnosis: 1. Acute infectious enterocolitis with salmonella and E. coli, present on admission. Resolving. 2. Morbid obesity, chronic, present on admission. Stable. Hospital Course: Genna Vanegas is a 19-year-old female with a past medical history significant for morbid obesity who presented to the ED for worsening epigastric pain, nausea, vomiting and fever. 1. Acute infectious enterocolitis with salmonella and E. coli, present on admission. Resolving. -Patient presented with worsening epigastric pain, nausea, vomiting and fever x1 day. -GI stool PCR was positive for Salmonella and EPEC and reported the health department by microbiology. Stool culture and ova parasite pending. Blood cultures have no growth to date. -Received metronidazole 500 mg IV which was discontinued and continued ceftriaxone 2 g IV daily x 2 doses and discharged on Levaquin 750 mg daily for 7 additional days to complete course. -Continued IV fluids until adequately hydrated then discontinued. Continued to replace electrolytes as necessary. -Continued acetaminophen and ibuprofen as needed for fever and pain relief alternating doses of Tylenol and ibuprofen for relief of her fever 2. Morbid obesity, chronic, present on admission. Stable. -BMI 53.8. -Discussed weight loss and recommended lifestyle modification including diet exercise. -Consulted dietitian but unobtainable due to national holiday and scheduling. Exam Vital Signs (past 8 hours): - 12/03/19 07:45 Pulse Oximetry 98 Oxygen Delivery Method Room Air Oxygen Flow Rate 0 Narrative Exam Narrative: General: Young morbidly obese female lying in bed and in no acute distress, well-developed, well-nourished, appropriately interactive. HEENT: Normocephalic, atraumatic. External ears without defect. Pupils equal, round, and reactive to light. Anicteric sclerae, moist conjunctivae, and no lid lag. Oropharynx free of erythema and cobble stoning with moist mucosa. Neck: Supple with full range of motion. No jugular venous distension. No bruits. No lymphadenopathy or thyromegaly. Cardiovascular: Regular rate and rhythm without murmurs, rubs, or gallops appreciated. Pulmonary: Clear to auscultation bilaterally without crackles, wheezes, or rhonchi. Normal respiratory effort with no use of accessory muscles. Abdomen: Soft, obese, bowel sounds present, improved mild tenderness to palpation in epigastrium, nondistended. No hepatosplenomegaly or masses appreciated. Extremities: No clubbing, cyanosis, or edema. Skin: Normal temperature, turgor, and texture; no rash, ulcers, or subcutaneous nodules appreciated. No salmon-colored macules. Neurological: Cranial nerves grossly intact. Psychiatric: Normal mood and affect. Alert and oriented to person, place, and time. Objective Labs Result Diagrams: 12/03/19 04:40 12/03/19 04:40 Labs: Laboratory Results - last 24 hr 12/02/19 12/03/19 12/03/19 04:41 04:40 04:40 WBC 7.7 RBC 4.04 Hgb 12.0 Hct 35.6 L MCV 88.1 MCH 29.8 MCHC 33.8 RDW 13.1 Plt Count 182 Neut % (Auto) 70.4 Lymph % (Auto) 22.7 L Garden % (Auto) 6.3 Eos % (Auto) 0.2 L Baso % (Auto) 0.4 Neut # (Auto) 5400 Lymph # (Auto) 1700 Garden # (Auto) 500 Eos # (Auto) 0 Baso # (Auto) 0 Sodium Potassium Chloride Carbon Dioxide BUN Creatinine Estimated GFR BUN/Creatinine Ratio Glucose Calcium Magnesium 1.7 Total Bilirubin AST ALT Alkaline Phosphatase Total Protein Albumin Globulin Albumin/Globulin Ratio Procalcitonin 0.27 12/03/19 04:40 WBC RBC Hgb Hct MCV MCH MCHC RDW Plt Count Neut % (Auto) Lymph % (Auto) Garden % (Auto) Eos % (Auto) Baso % (Auto) Neut # (Auto) Lymph # (Auto) Garden # (Auto) Eos # (Auto) Baso # (Auto) Sodium 139 Potassium 3.7 Chloride 113 H Carbon Dioxide 21 L BUN 6 L Creatinine 0.75 Estimated GFR > 60.0 BUN/Creatinine Ratio 8.0 Glucose 91 Calcium 8.0 L Magnesium 1.9 Total Bilirubin 0.3 AST 24 ALT 21 Alkaline Phosphatase 47 Total Protein 6.2 L Albumin 3.2 L Globulin 3.0 Albumin/Globulin Ratio 1.1 Procalcitonin Discharge Plan Discharge Plan Patient Disposition: Home Discharge comment: You are being discharged home. You have a salmonella and E coli infection of your small and large intestines. You were treated with IV antibiotic and have been prescribed levofloxacin 750 mg daily for 7 additional days to complete antibiotic course. Please try to stay well hydrated. You may take Tylenol or ibuprofen as directed on bottle for fever and pain. The health department has been notified to investigate the origin of your infection. Please use good personal and hand hygiene and wash her hands frequently Discharge orders & Medications Prescriptions: New levofloxacin 750 mg tablet 750 mg PO DAILY Qty: 7 RF: 0 Diet/Activity/Treatments Diet: Diet as Tolerated, Low-fat, Low-sodium and Low-cholesterol Activity: Activity as tolerated Visit Report/Discharge Packet Instructions: The Mediterranean Diet and Good Health, Escherichia coli Infection, DI for Salmonellosis, DI for Bacterial Gastroenteritis -- Adult, DI for Weight Loss, DI for Colitis Visit Report Forms: Patient Portal/API, Stroke Signs & Symptoms
--- NOTE | 2019-12-03 12:32 | PC.NURSE ---
pt states she has voided x 4 both bladder and bowel not measured
--- NOTE | 2019-12-03 14:31 | PC.NURSE ---
reviewed with pt plan for dc and importance of completion of her abx therapy as well as adding yogurt or probiotics - answered all questions that pt had and she seemed satisfied with responses- waiiting for her ride at this time
== END 2019-12-03 14:58 | disposition home or self-care (01) | DRG 248 ==
LOC: ED 23:33 → AC 23:41
PROVIDERS: Internal Medicine; Admitting Provider Nurse Practitioner Family; Emergency Provider Emergency Medicine; Referring Provider Emergency Medicine; Visit Provider Nurse Practitioner Family
DX: A04.0 Enteropathogenic Escherichia coli infection (principal); A02.0 Salmonella enteritis; E66.01 Morbid (severe) obesity due to excess calories; Z68.43 Body mass index [BMI] 50.0-59.9, adult; Z11.59 Encounter for screening for other viral diseases
CPT/HCPCS: 36415; 74177; 76705; 80048; 80053; 81003; 81015; 81025; 83036; 83605; 83690; 83735; 84145; 85025; 87040; 87045; 87086; 87177; 87493; 87507; 87635; 93005; 96361; 96365; 96367; 96375; 99284; J0696; J1650; J1885; J3480; Q9967

== ENCOUNTER 2020-08-23 10:10 | Emergency (ER) | payer OTHER, MEDICAID, SELFPAY ==
[2019-12-02 01:10] VITALS: BMI 52.7
[2020-08-23 10:12] VITALS: BP 126/86; PULSE 109; RESP 14; TEMP 36.8; O2SAT 100; BMI 52.7
[2020-08-23] MEDS: SODIUM CHLORIDE 0.9% 1,000 ML 1000 ML IV (10:36)
[2020-08-23] MEDS: ONDANSETRON 4 MG/2 ML INJ IV (10:36)
[2020-08-23 10:38] LABS: Hematocrit 42.5 % (36-46); Hemoglobin 14.3 g/dL (12.0-16.0); Mean Corpuscular HGB Conc 33.5 % (30-36); Mean Corpuscular Hemoglobin 28.9 PG (26-34); Mean Corpuscular Volume 86.2 fL (80-100); Platelet Count 233 X10^3/uL (150-400); Red Blood Cell Count 4.94 X10^6/uL (4.0-5.2); Red Cell Distribution Width 13.8 % (11.6-14.8); White Blood Cell Count 10.4 X10^3/uL (4.5-11.0)
--- NOTE | 2020-08-23 10:41 | ED_ITS ---
HPI - Nausea/Vomiting/Diarrhea General Chief complaint: Nausea/Vomiting/Diarrhea Stated complaint: Diarrhea/stomach pain/fever Time Seen by Provider: 08/23/20 10:28 Source: patient and family Mode of arrival: Ambulatory History of Present Illness HPI Narrative: Patient complains of watery diarrhea for the past for 5 days. Return from [facility]. Denies any sick contacts. Denies any contaminated food or drinks. Admitted November 2019 for colitis for hydration and IV treatment. Has nausea no vomiting no urinary complaints other than decreased urine output. Denies . LMP 5 weeks ago. No cough cold or congestion. Related Data Previous Rx's Medication Instructions Recorded levofloxacin 750 mg PO DAILY #7 tab 12/03/19 ciprofloxacin HCl 500 mg PO BID #10 tab 08/23/20 metoclopramide HCl 10 mg PO Q6H PRN #14 tab 08/23/20 Allergies Allergy/AdvReac Type Severity Reaction Status Date / Time No Known Drug Allergies Allergy Verified 08/23/20 10:22 Review of Systems Review of Systems Narrative: GENERAL: Denies chills, fatigue, malaise, fever, sweats. HEENT: Denies sinus pain, ear pain, sore throat RESPIRATORY: Denies dyspnea, cough CARDIOVASCULAR: Denies chest pain, palpitations GASTROINTESTINAL: Complaint nausea, denies vomiting, complains of diarrhea and abdominal pain : Denies dysuria, frequency, hematuria MUSCULOSKELETAL: denies muscle or bony pain SKIN: Denies rash, skin lesions NEUROLOGIC: Denies weakness, numbness ROS Unobtainable: All systems reviewed & are unremarkable except as noted in HPI and below Patient History Medical History No significant past medical history Surgical History Hx of tonsillectomy Family History Mother Diabetes mellitus Father Diabetes mellitus Sister Diabetes mellitus Hypothyroidism Social History household members: family Smoking Status: Never smoker Smoking Status: Never smoker alcohol intake frequency: holidays/special occasions only Substance Use Type: does not use Exam Narrative Exam Narrative: GENERAL: in no distress, not toxic not dyspneic HEAD: Normocephalic. EYES: Pupils equal round No scleral icterus. No injection no discharge ENT: Mucous membranes moist. NECK: Trachea midline. CARDIOVASCULAR: Regular rate and rhythm without murmurs RESPIRATORY: Clear to auscultation. Breath sounds equal bilaterally. No wheezes, rales, or rhonchi. GASTROINTESTINAL: Abdomen soft, non-tender, bowel sounds present no peritoneal signs. EXTREMITIES: No gross deformities. BACK: No flank tenderness. NEURO: AOx4. SKIN: Warm and dry PSYCH: Not anxious, is cooperative Initial Vital Signs Initial Vital Signs: Vital Signs Temperature 98.2 F 08/23/20 10:12 Pulse Rate 109 H 08/23/20 10:12 Respiratory Rate 14 08/23/20 10:12 Blood Pressure 126/86 08/23/20 10:12 Pulse Oximetry 100 08/23/20 10:12 Course Course Course Narrative: No new issues during course of stay. Orders Ordered: Discontinued Medications Ciprofloxacin (Ciprofloxacin 250 Mg Tablet) 500 mg PO NOW ONE Stop: 08/23/20 13:49 Sodium Chloride (Normal Saline 0.9%) 1,000 mls @ 1,000 mls/hr IV BOLUS ONE Stop: 08/23/20 11:19 Last Infusion: 08/23/20 12:35 Dose: 0 mls/hr Documented by: [email or web address] Admin: 08/23/20 10:36 Dose: 1,000 mls/hr Documented by: [email or web address] Ondansetron HCl (Ondansetron 4 Mg/2 Ml Inj) 4 mg IV NOW ONE Stop: 08/23/20 10:21 Last Admin: 08/23/20 10:36 Dose: 4 mg Documented by: [email or web address] Vancomycin HCl (Vancomycin 125 Mg Capsule) 125 mg PO NOW ONE Stop: 08/23/20 13:12 Last Admin: 08/23/20 13:23 Dose: Not Given Documented by: KBROTEM Reevaluation(s) Reevaluation #1: No distress at this time. Patient feeling much better. She desires discharge home. Reviewed results of CT scan and laboratory studies with her. She agrees with treatment plan. Also give referral for General surgery for outpatient colonoscopy. Time: 13:14 Consultations Consultation #1: Spoke with hospitalist, Dr. Soriano, appropriate for discharge home on vancomycin as first-line therapy for C diff.. Flagyl by itself would be secondary choice. Labs and imaging reassuring. Time: 13:15 Vital Signs Vital signs: Vital Signs - 8 hr 08/23/20 10:12 08/23/20 13:43 Temperature 98.2 F Pulse Rate 109 H 76 Respiratory Rate 14 15 Blood Pressure 126/86 125/78 Pulse Oximetry 100 100 MDM - Nausea/Vomiting/Diarrhea Differential Diagnosis Differential diagnosis: Likely traveler's diarrhea, gastroenteritis, clostridium difficile infection and dehydration Medical Records Attestation: I reviewed the patient's medical records. Lab Data Attestation: I reviewed the patient's lab results. Result diagrams: 08/23/20 10:32 08/23/20 10:32 Labs: Lab Results 08/23/20 08/23/20 08/23/20 Range/Units 10:32 10:32 10:32 WBC 10.4 (4.5-11.0) X10^3/uL RBC 4.94 (4.0-5.2) X10^6/uL Hgb 14.3 (12.0-16.0) g/dL Hct 42.5 (36-46) % MCV 86.2 (80-100) fL MCH 28.9 (26-34) PG MCHC 33.5 (30-36) % RDW 13.8 (11.6-14.8) % Plt Count 233 (150-400) X10^3/uL Total Counted 100 Seg Neutrophils % 88.0 H (38-70) % Band Neutrophils % 3.0 (3-7) % Lymphocytes % (Manual) 8.0 L (25-45) % Monocytes % (Manual) 1.0 L (2-11) % Neutrophils # (Manual) 9464 H (8783-3955) /uL RBC Morphology Normal morphology Sodium 138 (137-145) mmol/L Potassium 3.5 (3.4-5.1) mmol/L Chloride 103 (98-107) mmol/L Carbon Dioxide 26 (22-32) mmol/L BUN 6 L (7-17) mg/dL Creatinine 0.71 (0.52-1.04) mg/dL Estimated GFR > 60.0 (>60) mL/min BUN/Creatinine Ratio 8.5 (6-22) Glucose 103 H (70-100) mg/dL Calcium 9.1 (8.4-10.2) mg/dL Total Bilirubin 0.4 (0.2-1.3) mg/dL AST 26 (14-36) IU/L ALT 23 (<35) IU/L Alkaline Phosphatase 82 (38-126) U/L Total Protein 8.1 (6.3-8.2) g/dL Albumin 4.5 (3.5-5.0) g/dL Globulin 3.6 (1.7-4.1) g/dL Albumin/Globulin Ratio 1.3 (1.0-2.8) Serum , Qual Negative (Negative) Stl C. cayetanensis PCR (Not Detect) Stool Rotavirus (PCR) (Not Detect) Stool Adenovirus (PCR) (Not Detect) Stool Astrovirus (PCR) (Not Detect) Stool Cryptosporidium PCR (Not Detect) Stl E.coli Shiga Tox PCR (Not Detect) St Sh/Enteroin Ecoli PCR (Not Detect) Stool E coli O157 PCR Stl Enterotoxigenic E PCR (Not Detect) Stool EPEC (PCR) (Not Detect) Stl E. histolytica PCR (Not Detect) Stool Giardia Lamblia PCR (Not Detect) Stool Sapovirus (PCR) (Not Detect) Stl P. shigelloides PCR (Not Detect) St Y.enterocolitica PCR (Not Detect) Stool Vibrio (PCR) (Not Detect) Stl Vibrio cholerae PCR (Not Detect) Stl Enteroaggr Ecoli PCR (Not Detect) Stl Norovirus GI/GII PCR (Not Detect) Campylobacter (PCR) (Not Detect) C. difficile Tox (PCR) (Not Detect) SARS-CoV-2 (PCR) (Negative) Salmonella (PCR) (Not Detect) 08/23/20 08/23/20 Range/Units 10:50 11:42 WBC (4.5-11.0) X10^3/uL RBC (4.0-5.2) X10^6/uL Hgb (12.0-16.0) g/dL Hct (36-46) % MCV (80-100) fL MCH (26-34) PG MCHC (30-36) % RDW (11.6-14.8) % Plt Count (150-400) X10^3/uL Total Counted Seg Neutrophils % (38-70) % Band Neutrophils % (3-7) % Lymphocytes % (Manual) (25-45) % Monocytes % (Manual) (2-11) % Neutrophils # (Manual) (7207-5545) /uL RBC Morphology Sodium (137-145) mmol/L Potassium (3.4-5.1) mmol/L Chloride (98-107) mmol/L Carbon Dioxide (22-32) mmol/L BUN (7-17) mg/dL Creatinine (0.52-1.04) mg/dL Estimated GFR (>60) mL/min BUN/Creatinine Ratio (6-22) Glucose (70-100) mg/dL Calcium (8.4-10.2) mg/dL Total Bilirubin (0.2-1.3) mg/dL AST (14-36) IU/L ALT (<35) IU/L Alkaline Phosphatase (38-126) U/L Total Protein (6.3-8.2) g/dL Albumin (3.5-5.0) g/dL Globulin (1.7-4.1) g/dL Albumin/Globulin Ratio (1.0-2.8) Serum , Qual (Negative) Stl C. cayetanensis PCR Not detected (Not Detect) Stool Rotavirus (PCR) Not detected (Not Detect) Stool Adenovirus (PCR) Not detected (Not Detect) Stool Astrovirus (PCR) Not detected (Not Detect) Stool Cryptosporidium PCR Not detected (Not Detect) Stl E.coli Shiga Tox PCR Not detected (Not Detect) St Sh/Enteroin Ecoli PCR Not detected (Not Detect) Stool E coli O157 PCR Not Reportable Stl Enterotoxigenic E PCR Not detected (Not Detect) Stool EPEC (PCR) Not detected (Not Detect) Stl E. histolytica PCR Not detected (Not Detect) Stool Giardia Lamblia PCR Not detected (Not Detect) Stool Sapovirus (PCR) Not detected (Not Detect) Stl P. shigelloides PCR Not detected (Not Detect) St Y.enterocolitica PCR Not detected (Not Detect) Stool Vibrio (PCR) Not detected (Not Detect) Stl Vibrio cholerae PCR Not detected (Not Detect) Stl Enteroaggr Ecoli PCR Detected H (Not Detect) Stl Norovirus GI/GII PCR Not detected (Not Detect) Campylobacter (PCR) Detected H (Not Detect) C. difficile Tox (PCR) Not detected (Not Detect) SARS-CoV-2 (PCR) Negative (Negative) Salmonella (PCR) Not detected (Not Detect) Imaging Data CT scan - abdomen/pelvis: Radiologist's Impression: [place] [id number] [place] [id number] Scan ReportSigned Patient: Genna Vanegas LMR#: [id number]: 2000:[id number]/Sex: 20 / FDate of Service: 08/23/20Loc: EDAccession Number: [id number] Procedure: CT abdomen pelvis w con Ordering Provider: Lazarus Rasmussen MD PROCEDURE: CT ABDOMEN PELVIS W CON INDICATIONS: IV contrast only/abdominal pain TECHNIQUE: After the administration of intravenous contrast, 5 mm thick sections acquired from the diaphragm to the symphysis. 5 mm coronal and sagittal reformats were acquired. For radiation dose reduction, the following was used: automated exposure control, adjustment of mA and/or kV according to patient size. COMPARISON: [facility], CT, CT ABDOMEN PELVIS W CON, 12/01/2019, 21:57. [facility], US, US ABDOMEN LIMITED, 12/01/2019, 19:20. FINDINGS: Image quality: Excellent. ABDOMEN: Lung bases: Lung bases are clear. Heart size is normal. Solid organs: Liver is normal in size and enhancement. Diffuse fatty liver infiltration is noted. Gallbladder wall is not thickened. Biliary system is non dilated. Pancreas enhances normally. Spleen is normal in size and enhancement. No adrenal nodules. Kidneys demonstrate normal size and enhancement, without hydronephrosis. Peritoneum and bowel: There is wall thickening seen involving the entire colon, with a nodular quality. This is seen most prominently within the ascending colon and the transverse colon. Mild surrounding inflammatory changes are seen. No free air is seen to suggest perforation. No loculated abscess collection is seen. Mild wall thickening can be seen involving the terminal ileum, which appears improved compared to the prior. No dilated loops of small bowel are seen. A normal appendix is incidentally noted. Nodes and vessels: No retroperitoneal or mesenteric adenopathy by size criteria. Aorta and inferior vena cava are normal in size. Miscellaneous: No ventral hernias. PELVIS: Genitourinary: Bladder wall thickness is normal. The uterus appears normal for age. No adnexal masses are seen. Miscellaneous: No inguinal hernias or adenopathy. Bones: No suspicious bony lesions. No vertebral body compression fractures. IMPRESSION: Generalized colitis with a nodular quality. Please consider C difficile colitis as well as other infectious and inflammatory causes of colitis. Crohn's disease is possible, yet considered to be less likely. Incidental note is made of: Fatty liver infiltration Normal appendix Dictated by: Trevon Barber M.D. on 08/23/2020 at 11:06 Approved by: Trevon Barber M.D. on 08/23/2020 at 11:09 [facility] Narrative Medical decision making narrative: Appropriate for discharge home. Exam and results reassuring. Spoke with hospitalist, 1st line for possible C diff is vancomycin 125 mg 4 times a day for 10 days. Alternative if not available then Flagyl alone therapy. GI panel did return. Appropriate antibiotics was prescribed. Cipro. GI panel negative for C diff Discharge Plan Departure Patient Disposition: Home Clinical Impression: Colitis Instructions: DI for Colitis Activity Restrictions/Additional Instructions: Keep well hydrated. Return if worse if any questions or concerns. Call provided surgery office on Tuesday for scheduling of colonoscopy. Prescriptions have been sent to your pharmacy in [place] to nut picker today Prescriptions: New ciprofloxacin HCl 500 mg tablet 500 mg PO BID Qty: 10 RF: 0 metoclopramide HCl 10 mg tablet,disintegrating 10 mg PO Q6H PRN (Reason: nausea and vomiting) Qty: 14 RF: 0 No Action levofloxacin 750 mg tablet 750 mg PO DAILY Qty: 7 RF: 0 Referrals: Cricket Tovar MD [Physician] -
[2020-08-23 10:47] LABS: Alanine Aminotransferase 23 IU/L (<35); Albumin 4.5 g/dL (3.5-5.0); Albumin Globulin Ratio 1.3 (1.0-2.8); Alkaline Phosphatase 82 U/L (38-126); Aspartate Aminotransferase 26 IU/L (14-36); BUN Creatinine Ratio 8.5 (6-22); Bilirubin Total 0.4 mg/dL (0.2-1.3); Blood Urea Nitrogen 6 mg/dL (7-17); Calcium 9.1 mg/dL (8.4-10.2); Carbon Dioxide 26 mmol/L (22-32); Chloride 103 mmol/L (98-107); Estimated Glomerular Filt Rate > 60.0 mL/min (>60); Globulin 3.6 g/dL (1.7-4.1); Glucose 103 mg/dL (70-100); HEMOLYSIS < 15 (0-50); Potassium 3.5 mmol/L (3.4-5.1); Sodium 138 mmol/L (137-145); Total Protein 8.1 g/dL (6.3-8.2)
--- NOTE | 2020-08-23 10:47 | DI.CT.S_ITS ---
PROCEDURE: CT ABDOMEN PELVIS W CON INDICATIONS: IV contrast only/abdominal pain TECHNIQUE: After the administration of intravenous contrast, 5 mm thick sections acquired from the diaphragm to the symphysis. 5 mm coronal and sagittal reformats were acquired. For radiation dose reduction, the following was used: automated exposure control, adjustment of mA and/or kV according to patient size. COMPARISON: [facility], CT, CT ABDOMEN PELVIS W CON, 12/01/2019, 21:57. [facility], US, US ABDOMEN LIMITED, 12/01/2019, 19:20. FINDINGS: Image quality: Excellent. ABDOMEN: Lung bases: Lung bases are clear. Heart size is normal. Solid organs: Liver is normal in size and enhancement. Diffuse fatty liver infiltration is noted. Gallbladder wall is not thickened. Biliary system is non dilated. Pancreas enhances normally. Spleen is normal in size and enhancement. No adrenal nodules. Kidneys demonstrate normal size and enhancement, without hydronephrosis. Peritoneum and bowel: There is wall thickening seen involving the entire colon, with a nodular quality. This is seen most prominently within the ascending colon and the transverse colon. Mild surrounding inflammatory changes are seen. No free air is seen to suggest perforation. No loculated abscess collection is seen. Mild wall thickening can be seen involving the terminal ileum, which appears improved compared to the prior. No dilated loops of small bowel are seen. A normal appendix is incidentally noted. Nodes and vessels: No retroperitoneal or mesenteric adenopathy by size criteria. Aorta and inferior vena cava are normal in size. Miscellaneous: No ventral hernias. PELVIS: Genitourinary: Bladder wall thickness is normal. The uterus appears normal for age. No adnexal masses are seen. Miscellaneous: No inguinal hernias or adenopathy. Bones: No suspicious bony lesions. No vertebral body compression fractures. IMPRESSION: Generalized colitis with a nodular quality. Please consider C difficile colitis as well as other infectious and inflammatory causes of colitis. Crohn's disease is possible, yet considered to be less likely. Incidental note is made of: Fatty liver infiltration Normal appendix Dictated by: Trevon Barber M.D. on 08/23/2020 at 11:06 Approved by: Trevon Barber M.D. on 08/23/2020 at 11:09
[2020-08-23 11:05] LABS: Pregnancy Test Serum,Qual Negative (Negative)
[2020-08-23 11:13] LABS: COVID19 -Nasal RAPID Negative (Negative)
[2020-08-23 12:15] LABS: Neutrophils Absolute Manual 9464 /uL (3000-5900); RBC Morphology Normal Morphology; Total Cells Counted 100
[2020-08-23 13:15] LABS: Adenovirus F 40/41 Not Detected (Not Detect); Astrovirus Not Detected (Not Detect); Clostridium difficile toxin AB Not Detected (Not Detect); Cryptosporidium Not Detected (Not Detect); Cyclospora cayetanensis Not Detected (Not Detect); Entamoeba histolytica Not Detected (Not Detect); Enteropathogenic E.coli Not Detected (Not Detect); Enterotoxigenic E.coli It/st Not Detected (Not Detect); Giardia lamblia Not Detected (Not Detect); Norovirus GI/GII Not Detected (Not Detect); Plesiomonsa shigelloides Not Detected (Not Detect); Rotavirus A Not Detected (Not Detect); Salmonella Not Detected (Not Detect); Sapovirus Not Detected (Not Detect); Shiga-like toxin-prod E.coli Not Detected (Not Detect); Shigella/Enteroinvasive E.coli Not Detected (Not Detect); Vibrio Not Detected (Not Detect); Vibrio cholerae Not Detected (Not Detect); Yersinia enterocolitica Not Detected (Not Detect)
[2020-08-23 13:19] LABS: Campylobacter Detected (Not Detect); Enteroaggregative E.coli Detected (Not Detect)
[2020-08-23 13:43] VITALS: BP 125/78; PULSE 76; RESP 15; O2SAT 100
[2020-08-23 13:52] VITALS: BP 125/72; PULSE 76; O2SAT 97
== END 2020-08-23 14:01 | disposition home or self-care (01) ==
PROVIDERS: Emergency Provider Emergency Medicine
DX: K52.9 Noninfective gastroenteritis and colitis, unspecified (principal); R11.0 Nausea; Z20.822 Contact with and (suspected) exposure to COVID-19
CPT/HCPCS: 36415; 74177; 80053; 84703; 85025; 87507; 87635; 96361; 96374; 99284; C9803; J2405; Q9967

== ENCOUNTER 2021-06-01 15:44 | Observation (INO) | payer OTHER, MEDICAID, SELFPAY ==
[2019-12-02 01:10] VITALS: BMI 52.7
[2021-06-01 15:50] VITALS: BP 146/90; PULSE 76; RESP 16; TEMP 37.1; O2SAT 97; BMI 49.1
[2021-06-01 16:19] LABS: Add Manual Diff / Slide Review NO; Basophils Absolute Auto 100 /uL (0-100); Basophils Percent Auto 0.5 % (0-2); Eosinophils Absolute Auto 100 /uL (0-450); Eosinophils Percent Auto 0.9 % (2-4); Hematocrit 39.6 % (36-46); Hemoglobin 13.2 g/dL (12.0-16.0); Lymphocytes Absolute Auto 3100 /uL (1100-4500); Lymphocytes Percent Auto 27.8 % (25-40); Mean Corpuscular HGB Conc 33.3 % (30-36); Monocytes Absolute Auto 500 /uL (0-900); Monocytes Percent Auto 4.6 % (3-14); Neutrophils Absolute Auto 7400 /uL (1500-7000); Neutrophils Percent Auto 66.2 % (50-75); Platelet Count 305 X10^3/uL (150-400); Red Blood Cell Count 4.55 X10^6/uL (4.0-5.2); Red Cell Distribution Width 13.5 % (11.6-14.8); White Blood Cell Count 11.2 X10^3/uL (4.5-11.0)
[2021-06-01 16:29] LABS: Alanine Aminotransferase 23 IU/L (<35); Albumin 4.8 g/dL (3.5-5.0); Albumin Globulin Ratio 1.3 (1.0-2.8); Alkaline Phosphatase 74 U/L (38-126); Aspartate Aminotransferase 23 IU/L (14-36); BUN Creatinine Ratio 18.9 (6-22); Bilirubin Total 0.4 mg/dL (0.2-1.3); Blood Urea Nitrogen 18 mg/dL (7-17); Calcium 9.2 mg/dL (8.4-10.2); Carbon Dioxide 29 mmol/L (22-32); Chloride 103 mmol/L (98-107); Estimated Glomerular Filt Rate > 60.0 mL/min (>60); Globulin 3.8 g/dL (1.7-4.1); Glucose 107 mg/dL (70-100); HEMOLYSIS < 15 (0-50); Lipase 109 U/L (23-300); Potassium 3.9 mmol/L (3.4-5.1); Sodium 137 mmol/L (137-145); Total Protein 8.6 g/dL (6.3-8.2)
--- NOTE | 2021-06-01 18:26 | DI.US.S_ITS ---
PROCEDURE: US ABDOMEN LIMITED INDICATIONS: RUQ PAIN TECHNIQUE: Real-time focused scanning was performed of the abdomen, with image documentation. COMPARISON: None. FINDINGS: There is an approximately 1.5 cm shadowing gallstone in the gallbladder neck which is nonmobile and may be impacted. Positive sonographic Martinez's sign is reported. No gallbladder wall thickening or pericholecystic fluid. Hepatic steatosis. No intrahepatic or extrahepatic biliary duct dilatation. Pancreas obscured by bowel gas and not visualized. IMPRESSION: Cholelithiasis with an impacted stone in the gallbladder neck. Dictated by: Jemal Galeano M.D. on 06/01/2021 at 19:26 Approved by: Jemal Galeano M.D. on 06/01/2021 at 19:30
[2021-06-01 19:30] VITALS: BP 146/90; PULSE 88; RESP 18; O2SAT 100
--- NOTE | 2021-06-01 19:44 | ED_ITS ---
HPI - General Adult General Chief complaint: Abdominal Pain Stated complaint: ABD PAIN Time Seen by Provider: 06/01/21 18:25 Source: patient Mode of arrival: Ambulatory Limitations: no limitations History of Present Illness HPI narrative: Patient is an otherwise healthy 21-year-old female here for evaluation of epi gastric and right upper quadrant abdominal pain. Patient states that the symptoms started approximately 0100 hours this morning. She has just finished doing dishes in her kitchen and was sitting on the couch when the discomfort started. Has been consistent and actually worsening since then. No fevers. Some nausea but no vomiting. No urinary symptoms. No change in bowel habits. No prior abdominal surgeries. Related Data Previous Rx's Medication Instructions Recorded levofloxacin 750 mg tablet 750 mg PO DAILY #7 tab 12/03/19 ciprofloxacin HCl 500 mg tablet 500 mg PO BID #10 tab 08/23/20 metoclopramide HCl 10 mg 10 mg PO Q6H PRN #14 tab 08/23/20 disintegrating tablet Allergies Allergy/AdvReac Type Severity Reaction Status Date / Time No Known Drug Allergies Allergy Verified 08/23/20 10:22 Review of Systems Review of Systems ROS Unobtainable: All systems reviewed & are unremarkable except as noted in HPI and below Patient History Medical History No significant past medical history Surgical History Hx of tonsillectomy Family History Mother Diabetes mellitus Father Diabetes mellitus Sister Diabetes mellitus Hypothyroidism Social History household members: family Smoking Status: Never smoker Smoking Status: Never smoker alcohol intake frequency: holidays/special occasions only Substance Use Type: does not use Exam Initial Vital Signs Initial Vital Signs: Vital Signs Temperature 98.7 F 06/01/21 15:50 Pulse Rate 76 06/01/21 15:50 Respiratory Rate 16 06/01/21 15:50 Blood Pressure 146/90 H 06/01/21 15:50 Pulse Oximetry 97 06/01/21 15:50 Resp Effort & Inspection: normal respiratory effort Auscultation: clear to auscultation bilaterally Cardio Rate: regular rate Rhythm: regular rhythm GI Palpation: soft, No guarding and tender (Right upper quadrant, positive Martinez sign) Back/Spine/Pelvis Back: No CVA tenderness Skin General: no rashes or lesions noted Neuro General: patient alert, patient awake and moves all extremities Psych Appearance: grossly normal and well kempt Course Orders Ordered: ED Orders 06/01/21 16:03 Complete Blood Count AUTO DIFF Stat Comprehensive Metabolic Panel Stat Lipase Stat 06/01/21 18:26 US abdomen limited Stat 06/01/21 19:45 COVID19 -Nasal swab/Pre-Proc Stat 06/01/21 20:00 Consult to General Surgery Urgent Sodium Chloride (Normal Saline 0.9%) 1,000 mls @ 125 mls/hr IV CONT NICKIE Morphine Sulfate (Morphine 2 Mg/Ml Inj) 4 mg IV Q4HR PRN PRN Reason: Pain, Mild (1-3) Ondansetron HCl (Ondansetron 4 Mg/2 Ml Inj) 4 mg IV Q4HR PRN PRN Reason: Nausea And Vomiting Discontinued Medications Morphine Sulfate (Morphine 4 Mg/Ml Inj) 4 mg IV NOW ONE Stop: 06/01/21 19:45 Last Admin: 06/01/21 19:58 Dose: 4 mg Documented by: TANI Vital Signs Vital signs: Vital Signs - 8 hr 06/01/21 15:50 Temperature 98.7 F Pulse Rate 76 Respiratory Rate 16 Blood Pressure 146/90 H Pulse Oximetry 97 Medical Decision Making Lab Data Lab results reviewed: Yes I reviewed the patient's lab results. Result diagrams: 06/01/21 16:03 06/01/21 16:03 Labs: Lab Results 06/01/21 06/01/21 Range/Units 16:03 16:03 WBC 11.2 H (4.5-11.0) X10^3/uL RBC 4.55 (4.0-5.2) X10^6/uL Hgb 13.2 (12.0-16.0) g/dL Hct 39.6 (36-46) % MCV 87.0 (80-100) fL MCH 29.0 (26-34) PG MCHC 33.3 (30-36) % RDW 13.5 (11.6-14.8) % Plt Count 305 (150-400) X10^3/uL Neut % (Auto) 66.2 (50-75) % Lymph % (Auto) 27.8 (25-40) % [place] % (Auto) 4.6 (3-14) % Eos % (Auto) 0.9 L (2-4) % Baso % (Auto) 0.5 (0-2) % Neut # (Auto) 7400 H (7121-3093) /uL Lymph # (Auto) 3100 (8395-5374) /uL [place] # (Auto) 500 (0-900) /uL Eos # (Auto) 100 (0-450) /uL Baso # (Auto) 100 (0-100) /uL Sodium 137 (137-145) mmol/L Potassium 3.9 (3.4-5.1) mmol/L Chloride 103 (98-107) mmol/L Carbon Dioxide 29 (22-32) mmol/L BUN 18 H (7-17) mg/dL Creatinine 0.95 (0.52-1.04) mg/dL Estimated GFR > 60.0 (>60) mL/min BUN/Creatinine Ratio 18.9 (6-22) Glucose 107 H (70-100) mg/dL Calcium 9.2 (8.4-10.2) mg/dL Total Bilirubin 0.4 (0.2-1.3) mg/dL AST 23 (14-36) IU/L ALT 23 (<35) IU/L Alkaline Phosphatase 74 (38-126) U/L Total Protein 8.6 H (6.3-8.2) g/dL Albumin 4.8 (3.5-5.0) g/dL Globulin 3.8 (1.7-4.1) g/dL Albumin/Globulin Ratio 1.3 (1.0-2.8) Lipase 109 (23-300) U/L Point of Care Testing Test Results Negative Urine Dip Bedside Urine Glucose Negative Bedside Urine Bilirubin - Negative Bedside Urine Ketone - Negative Urine Specific [place] 1.020 Bedside Urine Occult Blood - Negative Bedside Urine pH 6.0 Bedside Urine Protein - Negative Bedside Urine Urobilinogen - Negative Bedside Urine Nitrite - Negative Bedside Urine Leukocytes - Negative Esterase Point of care testing: Point of Care Testing Test Results Negative Urine Dip Bedside Urine Glucose Negative Bedside Urine Bilirubin - Negative Bedside Urine Ketone - Negative Urine Specific [place] 1.020 Bedside Urine Occult Blood - Negative Bedside Urine pH 6.0 Bedside Urine Protein - Negative Bedside Urine Urobilinogen - Negative Bedside Urine Nitrite - Negative Bedside Urine Leukocytes - Negative Esterase Imaging Data US - abdomen: Radiologist's Impression: [address] [address] Ultrasound Report Signed Patient: Genna Vanegas MR#: [id number] : 2000 Acct:[id number] Age/Sex: 21 / F Date of Service: 06/01/21 Loc: ED Accession Number: [id number] ?? Procedure: US abdomen limited Ordering Provider: Conrado Feliz D.O. PROCEDURE: US ABDOMEN LIMITED ? INDICATIONS:? RUQ PAIN ? TECHNIQUE:? Real-time focused scanning was performed of the abdomen, with image documentation.? ? COMPARISON:? None. ? FINDINGS:? There is an approximately 1.5 cm shadowing gallstone in the gallbladder neck which is nonmobile and may be impacted.? Positive sonographic Martinez's sign is reported.? No gallbladder wall thickening or pericholecystic fluid.? Hepatic steatosis.? No intrahepatic or extrahepatic biliary duct dilatation.? Pancreas obscured by bowel gas and not visualized. ? IMPRESSION:? Cholelithiasis with an impacted stone in the gallbladder neck. ? ? Dictated by: Jemal Galeano M.D. on 06/01/2021 at 19:26 ? ? Approved by: Jemal Galeano M.D. on 06/01/2021 at 19:30?? MDM Narrative Medical decision making narrative: Afebrile, labs reassuring. No elevation in LFTs lipase. Does have a positive Martinez's sign otherwise a nonsurgical abdominal exam. Ultrasound shows no signs of cholecystitis but does have a large stone which appears to be impacted in the gallbladder neck. Discussed the case with Dr. Varela on-call for General surgery. Will admit for further evaluation and treatment. Discussed the need for admission with the patient. She expressed understanding and agreement as well. Discharge Plan Departure Patient Disposition: Admitted as Observation Clinical Impression: Symptomatic cholelithiasis Admit Date/Time: 06/01/21 20:04 Admit Provider: Rafael Varela
[2021-06-01] MEDS: MORPHINE 4 MG/ML INJ IV (19:58)
[2021-06-01 20:49] LABS: COVID19 -Nasal RAPID Negative (Negative)
[2021-06-01 20:57] VITALS: BMI 52.0
--- NOTE | 2021-06-01 21:44 | PC.NURSE ---
started in triage prior to 190
[2021-06-01 21:49] VITALS: BP 154/90; PULSE 94; RESP 20; TEMP 37.2; O2SAT 100
[2021-06-01] MEDS: SODIUM CHLORIDE 0.9% 1,000 ML 125 ML IV (22:43)
[2021-06-01 23:47] VITALS: BP 113/62; PULSE 86; RESP 16; TEMP 37.2; O2SAT 96
[2021-06-02] VITALS (19 sets, daily range): BP systolic 102–140; BP diastolic 44–85; PULSE 75–117; RESP 16–118; TEMP 36.4–36.9; O2SAT 90–100; BMI 52.0
--- NOTE | 2021-06-02 | PATH_ITS ---
[facility] Accession Number: [id number] . 01 Material submitted: . gallbladder - GALLBLADDER AND CONTENTS . 02 Diagnosis: Gallbladder, Cholecystectomy: Chronic cholecystitis with cholelithiasis and cholesterolosis. Negative for dysplasia and malignancy. MRV 06/08/2021 1307 Local . 02 Electronically signed: . Johana Hill MD, Pathologist NPI- [id number] . 01 Gross description: . Received in formalin, labeled with the patient's name, and additionally labeled gallbladder and contents is a gallbladder measuring 9.0 x 2.6 x 2.3 cm. The serosal surface is solis-gooden, smooth and glistening, and the liver bed surface is gooden-brown and shaggy. The cystic duct margin is inked blue. The specimen is opened through the tortuous cystic duct revealing approximately 5 mL of green-black bile sludge and a single yellow-green bosselated stone measuring 1.8 cm in greatest dimension lodged just proximal to the cystic duct margin. The mucosal surface is green and velvety with allen cholesterolosis. The gallbladder wall averages 2.0 mm in thickness. No masses or lesions are identified. Property Maintenance Technician sections, including the en face cystic margin, are submitted in cassette A1. ([id number]) /MRV 06/04/2021 1216 Local . 02 Pathologist provided ICD-10: K80.60 . 02 CPT . 662327 Specimen Comment: A courtesy copy of this report has been sent to [phone] Performed at: 01 [facility] [address] [place] [address], [place], [place] [id number] MD Thiago Rodriguez MD Phone: [phone] Performed at: 02 [facility] [place] [address] [place] [id number] MD Johana Hill MD Phone: [phone]
[2021-06-02] MEDS: MORPHINE 2 MG/ML INJ 4 MG IV (04:19)
[2021-06-02] MEDS: SODIUM CHLORIDE 0.9% 1,000 ML 125 ML IV (04:22)
--- NOTE | 2021-06-02 06:19 | PC.NURSE ---
Patient admitted to AC unit at 2024 on 06/01. Alert and oriented x 4, able to make needs known. Patient oriented to room and shown how to use call light. NS running at 125/hr. Independent in room. Morphine 4mg given x 1. Denies nausea. Sleeping at this time.
--- NOTE | 2021-06-02 08:08 | PC.NURSE ---
Addendum entered by Ana Laura Maldonado R.N. 06/02/21 19:02: Patient back from surgery around 1600. She has four lap bandages that are all cdi, she has voided, and is tolerating clear liquids. Denies pain, just checke on and patient is asleep. Addendum entered by Ana Laura Maldonado R.N. 06/02/21 11:52: Patient will be going to surgery in 30 minutes. Addendum entered by Ana Laura Maldonado R.N. 06/02/21 11:11: Patient is sleeping soundly, voices no complaints of pain at this time. Addendum entered by Ana Laura Maldonado R.N. 06/02/21 09:08: Patients sister called to check up on patient. She is sleeping now.. Will let patient know that she called. Original Note: Assess- Patient is alert and oriented x3, she denies pain this morning. Up independently and voided. Bowel tones are present but hypoactive. Patient is on ivf and tolerating this well. She has a friend staying in her room.
--- NOTE | 2021-06-02 09:12 | CM.DANOTE ---
DCP: Case received, EMR reviewed and met with patient. Friend, was also at bedside. Introduced self and role. Was able to obtain some information from patient. DCP assessment completed with information currently available Patient is a 21 year old female who admitted yesterday to the care of the hospitalist team. PCP: Unknown at this time. Payer: confirmed: [employer]/Medicaid. Patient came to the hospital via private vehicle secondary to having abdominal pain. According to notes, patient had been on her mother's couch, and developed increased abdominal pain. Patient holds diagnosis of cholethiasis, and could be having surgery today. Met with patient in her room. She is alert and oriented. Her significant other was at bedside. Patient is independent at her baseline, and is a student. She resides in [place] with her mother, Asia. P: DCP to continue to follow. Patient should be able to go home when she is deemed medically stable. Chelsie Agudelo RN/Animal Warden Discharge Planning/Care Management CM Discharge Assessment Start: 06/02/21 09:11 Freq: Status: Active Protocol: Document 06/02/21 09:11 (Rec: 06/02/21 09:12 [id number]) Discharge Planning Assessment Assigned Bellows Assembler Chelsie Agudelo RN/Animal Warden Advance Directives? No History Provided By Patient,Medical Record Prior Living Arrangements House Household Members family Type of transporation used prior to Drives own vehicle admit Independent with ADL's Yes Is patient alert and oriented? Yes Caregiver for Another No Barriers to Discharge No Discharge Plan Home Referrals Initiated None needed Whiteboard Updated in Patient Room with Yes name and ext. # of Bellows Assembler Review Status In Process Next Review Type Continued Stay Review
[2021-06-02] MEDS: LACTATED RINGERS 1,000 ML 84 ML IV ×2 (12:38→15:58)
--- NOTE | 2021-06-02 13:09 | P.HP_ITS ---
History of Present Illness History of Present Illness Date Patient Seen: 06/02/21 Time Patient Seen: 13:09 Chief complaint: ABD PAIN Narrative: Genna is 21-year-old woman who presented yesterday with several hours of sudden onset right upper quadrant pain. She never had a similar episode before. An ultrasound showed a gallstone impacted in gallbladder neck. She has never had prior abdominal surgery before. Patient History Medical History No significant past medical history Surgical History Hx of tonsillectomy Family & Social History Family History Mother Diabetes mellitus Father Diabetes mellitus Sister Diabetes mellitus Hypothyroidism Social History: household members family Prior Living Arrangements House Safety & Behavioral: Feels Safe in Current Yes Environment Been Physically Hurt or No Threatened By a Person Suicidal Ideation Description None Suicide Plan Description No Plan Tobacco & Substance use: Smoking Status Never smoker alcohol intake never alcohol intake frequency holiday/special occasion Substance Use Type does not use Meds Home Medications and Allergies Home Medications Medication Instructions Recorded Confirmed Type levofloxacin 750 mg tablet 750 mg PO DAILY #7 tab 12/03/19 06/02/21 Rx ciprofloxacin HCl 500 mg tablet 500 mg PO BID #10 tab 08/23/20 06/02/21 Rx metoclopramide HCl 10 mg 10 mg PO Q6H PRN #14 tab 08/23/20 06/02/21 Rx disintegrating tablet Allergies Allergy/AdvReac Type Severity Reaction Status Date / Time No Known Drug Allergies Allergy Verified 06/02/21 12:26 Exam Vital Signs (past 8 hours): - 06/02/21 07:15 06/02/21 11:30 06/02/21 12:39 Temperature 97.5 F L 97.7 F Pulse Rate 75 77 Respiratory Rate 18 16 Blood Pressure 121/79 103/65 Pulse Oximetry 97 99 100 Oxygen Delivery Method Room Air Oxygen Flow Rate 0 Const Nutritional Appearance: obese Resp Effort & Inspection: normal respiratory effort GI Other: Tender to palpation in the right upper quadrant Objective Labs Result Diagrams: 06/01/21 16:03 06/01/21 16:03 Labs: Laboratory Results - last 24 hr 06/01/21 06/01/21 06/01/21 16:03 16:03 20:20 WBC 11.2 H RBC 4.55 Hgb 13.2 Hct 39.6 MCV 87.0 MCH 29.0 MCHC 33.3 RDW 13.5 Plt Count 305 Neut % (Auto) 66.2 Lymph % (Auto) 27.8 [place] % (Auto) 4.6 Eos % (Auto) 0.9 L Baso % (Auto) 0.5 Neut # (Auto) 7400 H Lymph # (Auto) 3100 [place] # (Auto) 500 Eos # (Auto) 100 Baso # (Auto) 100 Sodium 137 Potassium 3.9 Chloride 103 Carbon Dioxide 29 BUN 18 H Creatinine 0.95 Estimated GFR > 60.0 BUN/Creatinine Ratio 18.9 Glucose 107 H Calcium 9.2 Total Bilirubin 0.4 AST 23 ALT 23 Alkaline Phosphatase 74 Total Protein 8.6 H Albumin 4.8 Globulin 3.8 Albumin/Globulin Ratio 1.3 Lipase 109 SARS-CoV-2 (PCR) Negative Assessment & Plan Assessment and plan (1) Symptomatic cholelithiasis: Status: Acute Plan 21-year-old woman with symptomatic cholelithiasis with an impacted stone. I recommend laparoscopic cholecystectomy. We reviewed the risks and benefits and she would like to proceed. COVID-19 COVID-19 status: Negative Result date/Date tested (Pos, Neg/Pending): 06/01/21 Time Spent With Patient Critical Care time: I spent a total of [] minutes of critical care time on this patient's care today; this time is exclusive of procedural time. Quality VTE Deep Vein Thrombosis/Pulmonary Embolism Present on Admission: No
--- NOTE | 2021-06-02 14:06 | SUR.OPER ---
Supine on padded OR bed, head on pillow, arms secured on padded arm boards at <90 degrees abduction, legs uncrossed, safety belt at thigh, tape over blanket over lower legs, footboard in place.
[2021-06-02] MEDS: LIDOCAINE 1% W/EPI 20 ML INJ (14:19)
[2021-06-02] MEDS: BUPIVACAINE 0.5% (PF) VIAL 30 ML INJ (14:21)
--- NOTE | 2021-06-02 15:38 | PM.OP.1 ---
Operative Date/Time/Diagnoses Date of procedure: 06/02/21 Time of procedure: 15:39 Pre-op diagnosis: Gallstones Post-op diagnosis: same Procedure & Clinicians Procedure: Laparoscopic cholecystectomy Same procedure as scheduled: Yes Surgeon: Rafael Varela Anesthesia Type: General Operative Notes Findings: Distended gallbladder Estimated Blood Loss (mL): 20 Procedure in detail: The patient was given preoperative antibiotic. The patient was brought to the operating room, placed on the table in the supine position. General endotracheal anesthesia was induced. The abdomen was prepped and draped. A time-out was performed. We made a 5 cm incision about 5 cm above the umbilicus. We dissected down to the anterior sheath using cautery. We scored the fascia transversely in the midline with cautery 1 cm. We grasped the superior leaf of the anterior sheath with a Naz clamp. We pierced the peritoneum with a Peon clamp. The 10 mm port was placed and the abdomen was insufflated to 15 mmHg. A 5 mm 30 degree laparoscopic was inserted. There was no evidence of any injury from the entry. Next, we placed 5 mm ports in the subxiphoid position and right upper quadrant at the midclavicular line and anterior axillary line. Patient was then positioned in reverse Trendelenburg and the table was tilted to the left. The gallbladder was grasped at the dome and retracted cephalad. We then dissected the cystic structures with a combination of hook cautery and blunt dissection. We obtained a critical view. We placed hemoclips on the cystic duct and artery and divided the cystic duct and artery sharply between the clips. The gallbladder was then dissected off the liver and placed in a specimen retrieval bag. We irrigated the right upper quadrant and all the aspirate returned clear. We then removed the 5 mm ports under direct vision we removed the Ely port. We then injected some local into the fascia and closed the fascia with 2 interrupted 0 Vicryl sutures. The skin incisions were closed with 4 Monocryl and Steri-Strips were applied. Band-Aids were applied over the Steri-Strips. EBL: 30 mL Specimen: Gallbladder Post-operative Condition: stable Disposition: PACU
[2021-06-02] MEDS: fentaNYL 250 MCG/5 ML INJ IV (16:04)
[2021-06-02] MEDS: ONDANSETRON 4 MG/2 ML INJ IV (16:04)
[2021-06-02] MEDS: ALBUTEROL 2.5 MG/3 ML NEB (ADULT) INH (16:04)
[2021-06-02] MEDS: OXYCODONE IR 5 MG TABLET PO (16:27)
[2021-06-02] MEDS: HYDROCODONE/ACET 5/325 TABLET 1 TAB PO (20:22)
[2021-06-02] MEDS: HYDROMORPHONE 0.5 MG INJ IV (21:49)
[2021-06-03 03:00] VITALS: BP 112/60; PULSE 79; RESP 18; TEMP 36.6; O2SAT 96
[2021-06-03] MEDS: HYDROMORPHONE 0.5 MG INJ IV (03:54)
[2021-06-03 08:20] VITALS: BP 134/65; PULSE 84; RESP 16; TEMP 36.8; O2SAT 97
[2021-06-03] MEDS: HYDROCODONE/ACET 5/325 TABLET 1 TAB PO (08:38)
--- NOTE | 2021-06-03 11:44 | PM.DS.1 ---
History of Present Illness History of Present Illness Chief complaint: ABD PAIN Narrative: Genna is 21-year-old woman who presented yesterday with several hours of sudden onset right upper quadrant pain. She never had a similar episode before. An ultrasound showed a gallstone impacted in gallbladder neck. She has never had prior abdominal surgery before. Discharge Providers Provider Date of admission: 06/01/21 20:04 Discharge Date: 06/03/21 Consults: 06/01/21 20:00 Consult to General Surgery Urgent Comment: Consulting Provider: Rafael Varela Reason for consultation: admission Has provider been notified: Yes Discharge provider: Rafael Varela MD Summary Hospital Course Discharge Diagnosis: Laparoscopic cholecystectomy Hospital Course: She had a laparoscopic cholecystectomy on 06/02/2021. She did well and was discharged on postoperative day 1. Exam Vital Signs (past 8 hours): - 06/03/21 08:20 Temperature 98.2 F Pulse Rate 84 Respiratory Rate 16 Blood Pressure 134/65 Pulse Oximetry 97 Oxygen Delivery Method Room Air Oxygen Flow Rate 0 Objective Labs Result Diagrams: 06/01/21 16:03 06/01/21 16:03 [facility] Medical History No significant past medical history Surgical History Hx of tonsillectomy Family History Mother Diabetes mellitus Father Diabetes mellitus Sister Diabetes mellitus Hypothyroidism Social History household members: family Smoking Status: Never smoker alcohol intake: never Discharge Plan Discharge Plan Patient Disposition: Home Provider Discharge Comment: No lifting greater than 20 lb for 2 weeks. Okay to remove the outer dressing and shower after 24 hours. Leave the Steri-Strips on until they start to peel off in 1-2 weeks. Discharge orders & Medications Prescriptions: New hydrocodone-acetaminophen 5-325 mg tablet 1 tab PO Q8H PRN (Reason: pain) Qty: 14 0RF Continued levofloxacin 750 mg tablet 750 mg PO DAILY Qty: 7 0RF Label Comments: No longer takes. ciprofloxacin HCl 500 mg tablet 500 mg PO BID Qty: 10 0RF Label Comments: No longer takes. metoclopramide HCl 10 mg tablet,disintegrating 10 mg PO Q6H PRN (Reason: nausea and vomiting) Qty: 14 0RF Label Comments: No longer takes. Discharge Data Attending Provider: Rafael Varela VTE Deep Vein Thrombosis/Pulmonary Embolism Present on Admission: No
--- NOTE | 2021-06-03 13:54 | PC.NURSE ---
pt discharged with belongings, nurse took pt in wheelchair to her dad's car, pt comfortable and moving independently
== END 2021-06-03 12:55 | disposition home or self-care (01) ==
LOC: ED 19:59 → AC 20:05
PROVIDERS: Emergency Medicine; Admitting Provider Surgery; Emergency Provider Emergency Medicine; Visit Provider Surgery
PROC: 0FT44ZZ Resection of Gallbladder, Percutaneous Endoscopic Approach (ICD-10-PCS; CPT 47562; principal; 2021-06-02 13:30)
DX: K80.10 Calculus of gallbladder with chronic cholecystitis without obstruction (principal); Z20.822 Contact with and (suspected) exposure to COVID-19
CPT/HCPCS: 47562; 76705; 80053; 81003; 81025; 83690; 85025; 87635; 96361; 96374; 96375; 96376; 99219; 99284; C9803; G0378; J1100; J1170; J2270; J2405; J2704; J3010; J7613

== ENCOUNTER → 2021-06-17 12:14 | Outpatient (CLI) | payer OTHER, MEDICAID, SELFPAY ==
[2021-06-01 20:57] VITALS: BMI 52.0
[2021-06-17 12:53] LABS: Alanine Aminotransferase 23 IU/L (<35); Albumin 4.6 g/dL (3.5-5.0); Albumin Globulin Ratio 1.4 (1.0-2.8); Alkaline Phosphatase 70 U/L (38-126); Aspartate Aminotransferase 22 IU/L (14-36); BUN Creatinine Ratio 21.9 (6-22); Bilirubin Total 0.4 mg/dL (0.2-1.3); Blood Urea Nitrogen 16 mg/dL (7-17); Calcium 8.7 mg/dL (8.4-10.2); Carbon Dioxide 28 mmol/L (22-32); Chloride 103 mmol/L (98-107); Estimated Glomerular Filt Rate > 60.0 mL/min (>60); Globulin 3.2 g/dL (1.7-4.1); Glucose 103 mg/dL (70-100); HEMOLYSIS < 15 (0-50); Hemoglobin A1C% w Est Avg Glu 5.6 % (4.0-6.0); Potassium 3.9 mmol/L (3.4-5.1); Sodium 139 mmol/L (137-145); Total Protein 7.8 g/dL (6.3-8.2)
== END ==
PROVIDERS: Referring Provider Surgery; Visit Provider Surgery
DX: K80.20 Calculus of gallbladder without cholecystitis without obstruction (principal)
CPT/HCPCS: 36415; 80053; 83036

== ENCOUNTER 2025-02-06 06:55 | Emergency (ER) | payer OTHER, SELFPAY ==
[2025-02-06 07:10] VITALS: BP 132/74; PULSE 68; RESP 18; TEMP 36.8; O2SAT 99; BMI 55.0
--- NOTE | 2025-02-06 07:14 | ED.BACK ---
HPI - Back Pain/Injury General Chief Complaint: Back Pain/Injury Stated Complaint: lower back, radiating down legs . Time Seen by Provider: 02/06/25 07:13 Source: patient, RN notes reviewed and old records reviewed Mode of arrival: Family Vehicle Limitations: no limitations History of Present Illness HPI Narrative: 25-year-old female history of anxiety, GERD who presents with complaint of low back pain that has started yesterday radiating down her legs particularly in the left leg but sometimes the right. She does not know some paresthesias down her left leg and occasionally down the right. She denies any saddle anesthesia. No bowel or bladder incontinence. No fevers. Patient has not had any chest pain or shortness of breath. No dysuria urgency or frequency. No new GI symptoms. Patient denies any rash or skin changes. She denies any trauma or injuries. She has not had back pain in the past. She states movement does make it worse. She states it started yesterday about 2 in the afternoon and has been progressively more uncomfortable. She did take acetaminophen last night help her sleep. She states she is on nortriptyline, omeprazole and Zofran PRN. She has had a cholecystectomy. No tobacco, no regular alcohol, no recreational or IV drugs. She is accompanied by her . Related Data Previous Rx's ?Medication ?Instructions ?Recorded levofloxacin 750 mg tablet 750 mg PO DAILY #7 tabs 12/03/19 ciprofloxacin HCl 500 mg tablet 500 mg PO BID #10 tabs 08/23/20 metoclopramide HCl 10 mg 10 mg PO Q6H PRN nausea and 08/23/20 disintegrating tablet vomiting #14 tabs hydrocodone 5 mg-acetaminophen 325 1 tab PO Q8H PRN pain #14 tabs 06/03/21 mg tablet diazepam 5 mg tablet (Valium) 5 mg PO TID PRN muscle spasm #7 02/06/25 tabs meloxicam 7.5 mg tablet 7.5 mg PO BID PRN pain #14 tabs 02/06/25 Allergies Allergy/AdvReac Type Severity Reaction Status Date / Time No Known Drug Allergies Allergy Verified 02/06/25 07:11 Review of Systems Review of Systems ROS Unobtainable: All systems reviewed & are unremarkable except as noted in HPI and below Patient History Medical History No significant past medical history Surgical History Hx of tonsillectomy Family History Mother Diabetes mellitus Father Diabetes mellitus Sister Diabetes mellitus Hypothyroidism Social History household members: family Smoking Status: Never smoker alcohol intake: never alcohol intake frequency: holidays/special occasions only Exam Narrative Exam Narrative: GENERAL: Alert and oriented x three, female in moderate distress HEENT: Head normocephalic, atraumatic, EOMI, pupils reactive, face symmetric, moist mucous membranes NECK: Supple, full range of motion CARDIOVASCULAR: Regular rate and rhythm without murmurs, rubs or gallops. RESPIRATORY: Breath sounds equal bilaterally, no wheezes rales or rhonchi. ABDOMEN: Soft, nontender. Normoactive bowel sounds all 4 quadrants. No guarding or rebound, rigidity, no mass : No CVA tenderness BACK: No cervical, thoracic vertebral point tenderness. Patient has some mild tenderness L4-L5 region. No warmth erythema or skin changes. Patient has mildly decreased range of motion. Patient is able to ambulate but uncomfortable. No saddle anesthesia. Muscle strength is 5/5 in lower extremities, DTRs are 2/4 and lower extremities. Patient has a increased pain if flexion of the hip straight leg raise bilaterally. Dorsalis pedis and tibialis pulses are 2+ and lower extremities. Sensation is intact in the lower extremities. EXTREMITIES: Normal range of motion, no clubbing or edema. Neurovascularly intact NEUROLOGICAL: Cranial nerves II through XII grossly intact. Moving all extremities SKIN: Warm, dry, no petechiae, no rashes or lesions. Initial Vital Signs Initial Vital Signs: Vital Signs Temperature 98.2 F 02/06/25 07:10 Pulse Rate 68 02/06/25 07:10 Respiratory Rate 18 02/06/25 07:10 Blood Pressure 132/74 02/06/25 07:10 Pulse Oximetry 99 02/06/25 07:10 Oxygen Delivery Method Room Air 02/06/25 07:10 Course Orders Ordered: ED Orders 02/06/25 07:22 XR lumbar spine 2-3V Stat Discontinued Medications Diazepam (Diazepam 5 Mg Tablet) 5 mg PO NOW ONE Stop: 02/06/25 07:23 Last Admin: 02/06/25 08:06 Dose: 5 mg Documented By: RB Ketorolac Tromethamine (Ketorolac 30 Mg/Ml Vial) 30 mg IM NOW ONE Stop: 02/06/25 07:23 Last Admin: 02/06/25 08:06 Dose: 30 mg Documented By: RB Vital Signs Vital signs: Vital Signs - 8 hr 02/06/25 07:10 02/06/25 08:57 Temperature 98.2 F Pulse Rate 68 66 Respiratory Rate 18 16 Blood Pressure 132/74 108/75 Pulse Oximetry 99 99 Oxygen Delivery Method Room Air Room Air MDM - Back Pain/Injury MDM Narrative Medical decision making narrative: 25-year-old female with a low back pain BMI of 55 patient has a recall any trauma or injury she does have some tenderness over the lower lumbar region no signs of infection or other high-risk symptoms. She has some paresthesias but no numbness, weakness, no saddle anesthesia or bowel or bladder incontinence. Lumbar spine x-ray, shows no acute bony abnormality. Patient received Toradol and Valium. Patient is feeling improved on rechecked reviewed all of her findings with her and her has been. Discussed return precautions and red flag symptoms. Discharge Plan Departure Patient Disposition: Home Clinical Impression: Lumbar back pain with radiculopathy affecting lower extremity Instructions: DI for Lumbar Radiculopathy Activity Restrictions/Additional Instructions: Follow up with your physician if your symptoms are persisting. You can take meloxicam 1 tablet every 12 hours as needed for pain. This has not NSAIDs did not take naproxen, Aleve or ibuprofen or similar medications with this medication. You can take acetaminophen up to a 1000 mg every 6 hours as needed for pain. If needed you can take muscle relaxer 1 tablet every 8 hours as needed. This medication can make you sleepy do not drive, perform hazardous activities or make any major decisions while taking it. Prescription sent to [facility] in [place]. Please return for fevers, rapidly worsening pain, any loss of bowel or bladder control, loss of sensation in your lower extremities, groin, new weakness, inability to lift or move your extremity safely or inability to ambulate or other new or concerning changes. Prescriptions: New meloxicam 7.5 mg tablet 7.5 mg PO BID PRN (Reason: pain) Qty: 14 0RF diazepam [Valium] 5 mg tablet 5 mg PO TID PRN (Reason: muscle spasm) Qty: 7 0RF No Action levofloxacin 750 mg tablet 750 mg PO DAILY Qty: 7 0RF Patient Comments: No longer takes. ciprofloxacin HCl 500 mg tablet 500 mg PO BID Qty: 10 0RF Patient Comments: No longer takes. metoclopramide HCl 10 mg tablet,disintegrating 10 mg PO Q6H PRN (Reason: nausea and vomiting) Qty: 14 0RF Patient Comments: No longer takes. hydrocodone-acetaminophen 5-325 mg tablet 1 tab PO Q8H PRN (Reason: pain) Qty: 14 0RF Referrals: Karley Santillan PA-C [Primary Care Provider, Medical] Stand Alone Forms: Patient Portal/API, Work Release Note
--- NOTE | 2025-02-06 07:22 | DI.RAD.S_ITS ---
PROCEDURE: XR LUMBAR SPINE 2-3V INDICATIONS: low back pain, radiates down legs TECHNIQUE: 3 views of the lumbar spine were acquired. COMPARISON: None. FINDINGS: Bones: 5 [id number] vertebrae are present. There is normal bony alignment. No vertebral body compression fractures. No suspicious bony lesions. Soft tissues: Overlying bowel gas pattern is normal. No suspicious soft tissue calcifications. IMPRESSION: No acute bony abnormality. Dictated by: Keon Mcfarlane M.D. on 02/06/2025 at 8:28 Approved by: Keon Mcfarlane M.D. on 02/06/2025 at 8:28
[2025-02-06] MEDS: KETOROLAC 30 MG/ML VIAL IM (08:06)
[2025-02-06 08:57] VITALS: BP 108/75; PULSE 66; RESP 16; O2SAT 99
== END 2025-02-06 09:06 | disposition home or self-care (01) ==
PROVIDERS: Emergency Provider Emergency Medicine; PCP Physician Assistant
DX: M54.16 Radiculopathy, lumbar region (principal)
CPT/HCPCS: 72100; 96372; 99283; J1885